=== PATIENT | male | born 1940 | race African-American/Black ===

== ENCOUNTER 2022-01-16 14:54 | Emergency (ER) | payer MEDICARE ==
[~2022-01-16] VITALS: Ht 180.3 cm; Wt 73.0 kg
[~2022-01-16 14:54] MED LIST: ASPI-1079 PO; METF100P3 MC
[2022-01-16] MEDS ORDERED: VANCOMYCIN 1G PREMIX 200 ML IV STA (15:53)
[2022-01-16] MEDS ORDERED: CEFEPIME 2,000 MG in DEXT 5% WATER 100 ML IV STA (15:54)
[2022-01-16 18:33] VITALS: BP 160/77
== END 2022-01-16 19:30 | disposition home or self-care (01) ==
LOC: ER 14:54
DX: T82.898A Other specified complication of vascular prosthetic devices, implants and grafts, initial encounter (principal); E11.9 Type 2 diabetes mellitus without complications; I10 Essential (primary) hypertension; I73.9 Peripheral vascular disease, unspecified; Z79.82 Long term (current) use of aspirin; Z79.84 Long term (current) use of oral hypoglycemic drugs; Z90.49 Acquired absence of other specified parts of digestive tract; Y83.8 Other surgical procedures as the cause of abnormal reaction of the patient, or of later complication, without mention of misadventure at the time of the procedure; Y92.018 Other place in single-family (private) house as the place of occurrence of the external cause
CPT/HCPCS: 82962; 96365; 96366; 96368; 99284; J0692; J3370; J7060

== ENCOUNTER 2022-01-17 08:55 | Emergency (ER) | payer MEDICARE ==
[~2022-01-17] VITALS: Ht 180.3 cm; Wt 72.0 kg
[2022-01-17 14:13] VITALS: BP 151/91
== END 2022-01-17 14:35 | disposition home or self-care (01) ==
LOC: ER 08:55
DX: Z95.828 Presence of other vascular implants and grafts (principal); I10 Essential (primary) hypertension; E11.9 Type 2 diabetes mellitus without complications; Z90.49 Acquired absence of other specified parts of digestive tract
CPT/HCPCS: 71045; 76937; 99284; C1725

== ENCOUNTER 2022-09-16 14:22 | Inpatient (IN) | payer MEDICARE, OTHER ==
[~2022-09-16] VITALS: Ht 180.3 cm; Wt 91.2 kg
[2022-09-16 15:54] LABS: BASOPHILS % 0.5 % (0.0-2.0); EOSINOPHILS % 0.2 % (0.0-5.0); HEMATOCRIT. 38.5 % (42.0-52.0); HEMOGLOBIN. 12.5 g/dL (14.0-18.0); LYMPHOCYTES % 11.4 % (20.0-50.0); MEAN CORPUSCULAR VOLUME 91.9 fL (80.0-94.0); MEAN PLATELET VOLUME 8.2 fl (7.4-10.4); MONOCYTES % 7.6 % (2.0-8.0); NEUTROPHILS % 80.3 % (40.0-76.0); PLATELET 297 x1000/uL (130-400); RED BLOOD CELL COUNT 4.19 mill/uL (4.7-6.1); RED CELL DISTRIBUTION WIDTH 15.3 % (11.6-14.6)
[2022-09-16 16:04] LABS: CHLORIDE 107 mEq/L (98-107)
[2022-09-16 16:25] LABS: ETHANOL BLOOD < 10 mg/dL
[2022-09-16] MEDS ORDERED: NITROGLYCERIN OINT 1GM/INCH UDPKT TD NR (18:00)
[2022-09-16] MEDS ORDERED: ASPIRIN 81MG TABLET PO NR (18:00)
[2022-09-16] MEDS ORDERED: FUROSEMIDE 40MG/4ML VIAL IV NR (18:00)
[2022-09-16] MEDS ORDERED: ONDANSETRON HCL 4MG/2ML INJ IV PRN (21:15)
[2022-09-16] MEDS ORDERED: IPRATROPIUM/ALBUTEROL 0.5-3(2.5)MG/3ML NEB HHN PRN (21:15)
[2022-09-16] MEDS ORDERED: DIPHENHYDRAMINE 50MG/ML VIAL IV PRN (21:15)
[2022-09-16] MEDS ORDERED: GUAIFENESIN 200MG/10ML SUGAR FREE UDC PO PRN (21:15)
[2022-09-16] MEDS ORDERED: ACETAMINOPHEN 650MG/20.3ML UDC GT PRN (21:15)
[2022-09-16] MEDS ORDERED: HYDROCODONE/ACETAMINOPHEN 5/325MG TABLET PO PRN (21:15)
[2022-09-16] MEDS ORDERED: ACETAMINOPHEN 325MG TABLET PO PRN (21:15)
[2022-09-16] MEDS ORDERED: NA PHOS,M-B/NA PHOS,DI-BA ENEMA 118ML PR PRN (21:15)
[2022-09-16] MEDS ORDERED: NALOXONE HCL 0.4MG/ML VIAL IV PRN (21:30)
[2022-09-16] MEDS ORDERED: DEXTROSE 50% WATER 50ML SYRINGE IV PRN (21:30)
[2022-09-16 22:05] LABS: CLARITY URINE CLEAR (CLEAR); COLOR URINE YELLOW (YELLOW); KETONES URINE NEGATIVE (NEGATIVE); LEUKOCYTE ESTERASE URINE NEGATIVE (NEGATIVE); NITRITE URINE NEGATIVE (NEGATIVE); OCCULT BLOOD URINE 1+ (NEGATIVE); PROTEIN URINE 3+ (NEGATIVE); SPECIFIC GRAVITY URINE 1.015 (1.005-1.030); UROBILINOGEN URINE 0.2 E.U./dL (0.2-1.0)
[2022-09-16 22:21] LABS: *AMPHETAMINES SCREEN URINE NEGATIVE (NEGATIVE); *BARBITURATES SCREEN URINE NEGATIVE (NEGATIVE); *BENZODIAZEPINES SCREEN URINE NEGATIVE (NEGATIVE); *COCAINE SCREEN URINE NEGATIVE (NEGATIVE); CANNABINOID URINE SCREEN NEGATIVE (NEGATIVE); METHADONE URINE SCREEN NEGATIVE (NEGATIVE); OPIATES URINE SCREEN NEGATIVE (NEGATIVE); PHENCYCLIDINE URINE SCREEN NEGATIVE (NEGATIVE)
[2022-09-16] MEDS: PANTOPRAZOLE 40MG DR TABLET PO SCH (22:32)
[2022-09-17] VITALS (7 sets, daily range): BP systolic 145–173; BP diastolic 89–105
[2022-09-17] MEDS: CLONIDINE 0.1MG TABLET PO PRN ×2 (00:24→21:44)
[2022-09-17 01:02] LABS: BASOPHILS % 0.2 % (0.0-2.0); EOSINOPHILS % 0.4 % (0.0-5.0); HEMATOCRIT. 35.6 % (42.0-52.0); HEMOGLOBIN. 11.6 g/dL (14.0-18.0); LYMPHOCYTES % 9.6 % (20.0-50.0); MEAN CORPUSCULAR VOLUME 91.6 fL (80.0-94.0); MEAN PLATELET VOLUME 7.8 fl (7.4-10.4); MONOCYTES % 8.5 % (2.0-8.0); NEUTROPHILS % 81.3 % (40.0-76.0); PLATELET 259 x1000/uL (130-400); RED BLOOD CELL COUNT 3.89 mill/uL (4.7-6.1); RED CELL DISTRIBUTION WIDTH 14.9 % (11.6-14.6)
[2022-09-17 01:48] LABS: CHLORIDE 107 mEq/L (98-107)
[2022-09-17 02:07] LABS: HDL CHOLESTEROL 69 mg/dL (40-59); LDL CHOLESTEROL 118 mg/dL (5-100); T4 FREE 1.16 ng/dL (0.76-1.46)
[2022-09-17 02:17] LABS: FOLIC ACID (FOLATE) SERUM 10.3 ng/mL (>5.38)
[2022-09-17 02:24] LABS: TOTAL IRON BINDING CAPACITY 153 ug/dL (250-450)
[2022-09-17] MEDS ORDERED: BLOOD SUGAR DIAGNOSTIC STRIP TEST SCH (07:40)
[2022-09-17] MEDS: PANTOPRAZOLE 40MG DR TABLET PO SCH (08:02)
[2022-09-17] MEDS: INSULIN LISPRO 100 UNITS/ML SUBCUT SCH ×4 (08:05→21:00)
[2022-09-17] MEDS: ENOXAPARIN 40MG/0.4ML SYR SUBCUT SCH (08:46)
[2022-09-17] MEDS ORDERED: DEXTROSE 50% WATER 50ML SYRINGE IV PRN (11:15)
[2022-09-17] MEDS: BLOOD SUGAR DIAGNOSTIC STRIP TEST SCH ×3 (13:09→21:45)
[2022-09-17] MEDS ORDERED: PIPERACILLIN/TAZOBACTAM 3.375 G in DEXT 5% WATER 100 ML IV SCH (14:00)
[2022-09-17] MEDS: PIPERACILLIN/TAZOBACTAM 3.375G in DEXT 5% WATER 50ML IV SCH ×2 (15:59→21:45)
[2022-09-17] MEDS ORDERED: SILVER SULFADIAZINE 1% CREAM 25GM TOP SCH (16:45)
[2022-09-17] MEDS: FUROSEMIDE 40MG/4ML VIAL IVP SCH (18:15)
[2022-09-17] MEDS: METFORMIN HCL 500MG TABLET PO SCH (18:15)
[2022-09-17] MEDS ORDERED: FUROSEMIDE 40MG TABLET PO SCH (21:00)
[2022-09-17] MEDS: CARVEDILOL 6.25 MG TABLET PO SCH (21:44)
[2022-09-18] VITALS: BP 155/102
[2022-09-18 04:00] VITALS: BP 141/90
[2022-09-18] MEDS: FUROSEMIDE 40MG/4ML VIAL IVP SCH ×3 (06:21→18:53)
[2022-09-18] MEDS: PIPERACILLIN/TAZOBACTAM 3.375G in DEXT 5% WATER 50ML IV SCH ×3 (06:21→21:57)
[2022-09-18] MEDS: BLOOD SUGAR DIAGNOSTIC STRIP TEST SCH ×4 (06:39→21:55)
[2022-09-18] MEDS: INSULIN LISPRO 100 UNITS/ML SUBCUT SCH ×4 (07:41→21:00)
[2022-09-18 08:00] VITALS: BP 144/82
[2022-09-18] MEDS ORDERED: INSULIN GLARGINE 100 UNITS/ML SUBCUT SCH (08:00)
[2022-09-18] MEDS: METFORMIN HCL 500MG TABLET PO SCH ×2 (09:42→18:53)
[2022-09-18] MEDS: ASPIRIN 81MG TABLET PO SCH (09:42)
[2022-09-18] MEDS: FAMOTIDINE 20MG TABLET PO SCH ×2 (09:43→21:56)
[2022-09-18] MEDS: LOSARTAN POTASSIUM 50 MG TABLET PO SCH (09:43)
[2022-09-18] MEDS: ENOXAPARIN 40MG/0.4ML SYR SUBCUT SCH (09:43)
[2022-09-18] MEDS: CARVEDILOL 6.25 MG TABLET PO SCH ×2 (09:46→21:56)
[2022-09-18 12:00] VITALS: BP 127/69
[2022-09-18 13:00] LABS: BASOPHILS % 0.5 % (0.0-2.0); HEMATOCRIT. 35.7 % (42.0-52.0); HEMOGLOBIN. 12.1 g/dL (14.0-18.0); LYMPHOCYTES % 15.7 % (20.0-50.0); MEAN CORPUSCULAR HEMOGLOBIN 30.5 pg (28.0-32.0); MEAN CORPUSCULAR VOLUME 89.8 fL (80.0-94.0); MEAN PLATELET VOLUME 8.1 fl (7.4-10.4); MONOCYTES % 9.2 % (2.0-8.0); NEUTROPHILS % 72.6 % (40.0-76.0); PLATELET 217 x1000/uL (130-400); RED BLOOD CELL COUNT 3.97 mill/uL (4.7-6.1); RED CELL DISTRIBUTION WIDTH 14.6 % (11.6-14.6)
[2022-09-18 13:17] LABS: CHLORIDE 105 mEq/L (98-107)
[2022-09-18 13:26] LABS: PHOSPHORUS 3.9 mg/dL (2.5-4.9)
[2022-09-18 16:00] VITALS: BP 141/82
[2022-09-18 20:00] VITALS: BP 141/88
[2022-09-19] VITALS: BP 150/95
[2022-09-19 04:00] VITALS: BP 136/83
[2022-09-19] MEDS: FUROSEMIDE 40MG/4ML VIAL IVP SCH ×2 (05:42→17:25)
[2022-09-19] MEDS: PIPERACILLIN/TAZOBACTAM 3.375G in DEXT 5% WATER 50ML IV SCH ×2 (05:42→13:11)
[2022-09-19] MEDS: BLOOD SUGAR DIAGNOSTIC STRIP TEST SCH ×4 (06:03→21:00)
[2022-09-19] MEDS: ASPIRIN 81MG TABLET PO SCH (09:13)
[2022-09-19] MEDS: LOSARTAN POTASSIUM 50 MG TABLET PO SCH (09:13)
[2022-09-19] MEDS: FAMOTIDINE 20MG TABLET PO SCH ×2 (09:13→22:04)
[2022-09-19] MEDS: CARVEDILOL 6.25 MG TABLET PO SCH ×2 (09:14→22:04)
[2022-09-19] MEDS: INSULIN LISPRO 100 UNITS/ML SUBCUT SCH ×4 (09:15→21:00)
[2022-09-19] MEDS: ENOXAPARIN 40MG/0.4ML SYR SUBCUT SCH (09:17)
[2022-09-19] MEDS: METFORMIN HCL 500MG TABLET PO SCH ×2 (09:20→17:25)
[2022-09-19 09:23] LABS: BASOPHILS % 0.7 % (0.0-2.0); EOSINOPHILS % 1.8 % (0.0-5.0); HEMATOCRIT. 38.9 % (42.0-52.0); HEMOGLOBIN. 12.3 g/dL (14.0-18.0); LYMPHOCYTES % 16.4 % (20.0-50.0); MEAN CORPUSCULAR HEMOGLOBIN 29.5 pg (28.0-32.0); MEAN PLATELET VOLUME 7.7 fl (7.4-10.4); MONOCYTES % 6.7 % (2.0-8.0); NEUTROPHILS % 74.4 % (40.0-76.0); PLATELET 263 x1000/uL (130-400); RED BLOOD CELL COUNT 4.19 mill/uL (4.7-6.1)
[2022-09-19 10:31] LABS: CHLORIDE 107 mEq/L (98-107); PHOSPHORUS 3.6 mg/dL (2.5-4.9)
[2022-09-19 12:00] VITALS: BP 119/74
[2022-09-19 16:00] VITALS: BP 127/73
[2022-09-19 20:00] VITALS: BP 132/85
[2022-09-19] MEDS ORDERED: CEFEPIME HCL 1000MG/VIAL INJ IM SCH (21:00)
[2022-09-19] MEDS: CEFEPIME 2,000 MG in DEXT 5% WATER 100 ML IV SCH (22:03)
[2022-09-20] VITALS: BP 151/83
[2022-09-20 04:00] VITALS: BP 153/92
[2022-09-20 06:19] LABS: BASOPHILS % 0.9 % (0.0-2.0); EOSINOPHILS % 1.8 % (0.0-5.0); HEMATOCRIT. 35.5 % (42.0-52.0); HEMOGLOBIN. 11.7 g/dL (14.0-18.0); LYMPHOCYTES % 15.3 % (20.0-50.0); MEAN CORPUSCULAR HEMOGLOBIN 29.9 pg (28.0-32.0); MEAN CORPUSCULAR VOLUME 90.6 fL (80.0-94.0); MEAN PLATELET VOLUME 7.9 fl (7.4-10.4); MONOCYTES % 10.1 % (2.0-8.0); NEUTROPHILS % 71.9 % (40.0-76.0); PLATELET 257 x1000/uL (130-400); RED BLOOD CELL COUNT 3.91 mill/uL (4.7-6.1); RED CELL DISTRIBUTION WIDTH 14.9 % (11.6-14.6)
[2022-09-20] MEDS: FUROSEMIDE 40MG/4ML VIAL IVP SCH ×2 (06:29→17:48)
[2022-09-20 06:57] LABS: CHLORIDE 104 mEq/L (98-107)
[2022-09-20 07:05] LABS: PHOSPHORUS 3.7 mg/dL (2.5-4.9)
[2022-09-20] MEDS: BLOOD SUGAR DIAGNOSTIC STRIP TEST SCH ×4 (07:40→21:00)
[2022-09-20 08:00] VITALS: BP 173/94
[2022-09-20] MEDS: INSULIN LISPRO 100 UNITS/ML SUBCUT SCH ×4 (08:10→21:00)
[2022-09-20] MEDS: ASPIRIN 81MG TABLET PO SCH (09:06)
[2022-09-20] MEDS: FAMOTIDINE 20MG TABLET PO SCH ×2 (09:06→21:00)
[2022-09-20] MEDS: METFORMIN HCL 500MG TABLET PO SCH ×2 (09:06→17:55)
[2022-09-20] MEDS: CARVEDILOL 6.25 MG TABLET PO SCH ×2 (09:07→22:20)
[2022-09-20] MEDS: LOSARTAN POTASSIUM 50 MG TABLET PO SCH (09:07)
[2022-09-20] MEDS: ENOXAPARIN 40MG/0.4ML SYR SUBCUT SCH (09:07)
[2022-09-20 12:00] VITALS: BP 136/77
[2022-09-20] MEDS ORDERED: MAGNESIUM OXIDE 400MG TABLET PO NR (14:00)
[2022-09-20 16:00] VITALS: BP 136/81
[2022-09-20 20:00] VITALS: BP 148/83
[2022-09-20] MEDS: CEFEPIME 2,000 MG in DEXT 5% WATER 100 ML IV SCH (20:59)
[2022-09-21 04:00] VITALS: BP 143/87
[2022-09-21] MEDS: BLOOD SUGAR DIAGNOSTIC STRIP TEST SCH ×4 (07:26→21:00)
[2022-09-21] MEDS: INSULIN LISPRO 100 UNITS/ML SUBCUT SCH ×4 (07:26→21:00)
[2022-09-21] MEDS: FUROSEMIDE 40MG/4ML VIAL IVP SCH (07:26)
[2022-09-21 08:00] VITALS: BP 141/85
[2022-09-21] MEDS: ASPIRIN 81MG TABLET PO SCH (08:21)
[2022-09-21] MEDS: LOSARTAN POTASSIUM 50 MG TABLET PO SCH (08:21)
[2022-09-21] MEDS: CARVEDILOL 6.25 MG TABLET PO SCH (08:21)
[2022-09-21] MEDS: METFORMIN HCL 500MG TABLET PO SCH ×2 (08:21→17:07)
[2022-09-21] MEDS: FAMOTIDINE 20MG TABLET PO SCH ×2 (08:21→21:12)
[2022-09-21] MEDS: ENOXAPARIN 40MG/0.4ML SYR SUBCUT SCH (08:22)
[2022-09-21 10:44] LABS: BASOPHILS % 0.5 % (0.0-2.0); EOSINOPHILS % 1.9 % (0.0-5.0); HEMATOCRIT. 35.7 % (42.0-52.0); HEMOGLOBIN. 11.7 g/dL (14.0-18.0); LYMPHOCYTES % 15.5 % (20.0-50.0); MEAN CORPUSCULAR HEMOGLOBIN 29.8 pg (28.0-32.0); MEAN PLATELET VOLUME 7.8 fl (7.4-10.4); MONOCYTES % 9.1 % (2.0-8.0); PLATELET 244 x1000/uL (130-400); RED BLOOD CELL COUNT 3.92 mill/uL (4.7-6.1); RED CELL DISTRIBUTION WIDTH 14.7 % (11.6-14.6)
[2022-09-21 11:28] LABS: CHLORIDE 105 mEq/L (98-107)
[2022-09-21 12:00] VITALS: BP 137/81
[2022-09-21 16:00] VITALS: BP 131/86
[2022-09-21 20:00] VITALS: BP 138/90
[2022-09-21] MEDS: CEFEPIME 2,000 MG in DEXT 5% WATER 100 ML IV SCH (21:11)
[2022-09-21] MEDS: CARVEDILOL 12.5MG TABLET PO SCH (21:12)
[2022-09-22] VITALS: BP 134/78
[2022-09-22 04:00] VITALS: BP 139/76
[2022-09-22] MEDS: BLOOD SUGAR DIAGNOSTIC STRIP TEST SCH ×4 (06:25→21:45)
[2022-09-22] MEDS: METFORMIN HCL 500MG TABLET PO SCH ×2 (06:26→17:51)
[2022-09-22] MEDS: INSULIN LISPRO 100 UNITS/ML SUBCUT SCH ×4 (06:26→22:01)
[2022-09-22 08:00] VITALS: BP 139/73
[2022-09-22 11:15] LABS: BASOPHILS % 0.3 % (0.0-2.0); EOSINOPHILS % 2.3 % (0.0-5.0); HEMATOCRIT. 35.1 % (42.0-52.0); HEMOGLOBIN. 11.4 g/dL (14.0-18.0); LYMPHOCYTES % 19.1 % (20.0-50.0); MEAN CORPUSCULAR HEMOGLOBIN 29.6 pg (28.0-32.0); MEAN CORPUSCULAR VOLUME 91.2 fL (80.0-94.0); MEAN PLATELET VOLUME 7.5 fl (7.4-10.4); MONOCYTES % 11.4 % (2.0-8.0); NEUTROPHILS % 66.9 % (40.0-76.0); PLATELET 238 x1000/uL (130-400); RED BLOOD CELL COUNT 3.84 mill/uL (4.7-6.1); RED CELL DISTRIBUTION WIDTH 14.9 % (11.6-14.6)
[2022-09-22 12:00] VITALS: BP 150/83
[2022-09-22 12:17] LABS: CHLORIDE 102 mEq/L (98-107)
[2022-09-22] MEDS: FAMOTIDINE 20MG TABLET PO SCH ×2 (13:27→21:59)
[2022-09-22] MEDS: LOSARTAN POTASSIUM 50 MG TABLET PO SCH (13:27)
[2022-09-22] MEDS: ASPIRIN 81MG TABLET PO SCH (13:27)
[2022-09-22] MEDS: ENOXAPARIN 40MG/0.4ML SYR SUBCUT SCH (13:28)
[2022-09-22] MEDS: CARVEDILOL 12.5MG TABLET PO SCH ×2 (13:28→22:00)
[2022-09-22 16:00] VITALS: BP 129/66
[2022-09-22 20:00] VITALS: BP 130/73
[2022-09-22] MEDS: CEFEPIME 2,000 MG in DEXT 5% WATER 100 ML IV SCH (22:20)
[2022-09-23] VITALS (9 sets, daily range): BP systolic 124–160; BP diastolic 61–90
[2022-09-23 06:34] LABS: BASOPHILS % 0.8 % (0.0-2.0); EOSINOPHILS % 2.4 % (0.0-5.0); HEMATOCRIT. 35.6 % (42.0-52.0); HEMOGLOBIN. 11.7 g/dL (14.0-18.0); LYMPHOCYTES % 19.2 % (20.0-50.0); MEAN CORPUSCULAR HEMOGLOBIN 29.8 pg (28.0-32.0); MEAN CORPUSCULAR VOLUME 90.9 fL (80.0-94.0); MEAN PLATELET VOLUME 7.8 fl (7.4-10.4); NEUTROPHILS % 66.6 % (40.0-76.0); PLATELET 268 x1000/uL (130-400); RED BLOOD CELL COUNT 3.91 mill/uL (4.7-6.1); RED CELL DISTRIBUTION WIDTH 14.8 % (11.6-14.6)
[2022-09-23] MEDS: BLOOD SUGAR DIAGNOSTIC STRIP TEST SCH ×3 (07:35→20:42)
[2022-09-23] MEDS: INSULIN LISPRO 100 UNITS/ML SUBCUT SCH ×3 (07:36→21:00)
[2022-09-23] MEDS: ENOXAPARIN 40MG/0.4ML SYR SUBCUT SCH (09:00)
[2022-09-23 09:29] LABS: CHLORIDE 107 mEq/L (98-107)
[2022-09-23] MEDS: FAMOTIDINE 20MG TABLET PO SCH ×2 (09:51→21:17)
[2022-09-23] MEDS: ASPIRIN 81MG TABLET PO SCH (09:51)
[2022-09-23] MEDS: METFORMIN HCL 500MG TABLET PO SCH (09:51)
[2022-09-23] MEDS: LOSARTAN POTASSIUM 50 MG TABLET PO SCH (09:52)
[2022-09-23] MEDS: CARVEDILOL 12.5MG TABLET PO SCH ×2 (09:52→21:16)
[2022-09-23] MEDS ORDERED: IODIXANOL 320MG/ML 100 ML BOTTLE IV ONE (14:10)
[2022-09-23] MEDS ORDERED: LIDOCAINE HCL 1% 50ML VIAL (10MG/ML) ONE (14:11)
[2022-09-23] MEDS ORDERED: FENTANYL CITRATE/PF 50MCG/ML 2ML VIAL ONE ×2 (14:21→16:14)
[2022-09-23] MEDS ORDERED: MIDAZOLAM HCL 2 MG/2 ML VIAL ONE ×2 (14:21→15:42)
[2022-09-23] MEDS ORDERED: HEPARIN 1000 UNITS/ML 10ML ONE (15:19)
[2022-09-23] MEDS ORDERED: CLOPIDOGREL 75MG TABLET ONE (15:56)
[2022-09-23] MEDS ORDERED: ATROPINE SULFATE 1MG/10ML SYR IV PRN (17:00)
[2022-09-23] MEDS ORDERED: ONDANSETRON HCL 4MG/2ML INJ ONE (17:04)
[2022-09-23] MEDS: CEFEPIME 2,000 MG in DEXT 5% WATER 100 ML IV SCH (21:15)
[2022-09-24] VITALS (9 sets, daily range): BP systolic 112–141; BP diastolic 58–82
[2022-09-24 06:30] LABS: BASOPHILS % 0.7 % (0.0-2.0); EOSINOPHILS % 1.8 % (0.0-5.0); HEMATOCRIT. 35.8 % (42.0-52.0); HEMOGLOBIN. 11.6 g/dL (14.0-18.0); MEAN CORPUSCULAR HEMOGLOBIN 30.3 pg (28.0-32.0); MEAN CORPUSCULAR VOLUME 93.5 fL (80.0-94.0); MEAN PLATELET VOLUME 7.7 fl (7.4-10.4); MONOCYTES % 11.4 % (2.0-8.0); NEUTROPHILS % 67.1 % (40.0-76.0); PLATELET 233 x1000/uL (130-400); RED BLOOD CELL COUNT 3.83 mill/uL (4.7-6.1); RED CELL DISTRIBUTION WIDTH 14.9 % (11.6-14.6)
[2022-09-24 06:39] LABS: CHLORIDE 106 mEq/L (98-107)
[2022-09-24] MEDS: BLOOD SUGAR DIAGNOSTIC STRIP TEST SCH ×4 (06:43→21:40)
[2022-09-24] MEDS: INSULIN LISPRO 100 UNITS/ML SUBCUT SCH ×4 (07:20→21:52)
[2022-09-24] MEDS: FAMOTIDINE 20MG TABLET PO SCH ×2 (07:58→21:49)
[2022-09-24] MEDS: LOSARTAN POTASSIUM 50 MG TABLET PO SCH (07:58)
[2022-09-24] MEDS: METFORMIN HCL 500MG TABLET PO SCH ×2 (07:58→17:32)
[2022-09-24] MEDS: CARVEDILOL 12.5MG TABLET PO SCH ×2 (07:58→21:50)
[2022-09-24] MEDS: ENOXAPARIN 40MG/0.4ML SYR SUBCUT SCH (07:58)
[2022-09-24] MEDS: ASPIRIN 325MG TABLET PO SCH (09:51)
[2022-09-24] MEDS: CLOPIDOGREL 75MG TABLET PO SCH (09:51)
[2022-09-24] MEDS ORDERED: METF-414 PO (11:32)
[2022-09-24] MEDS ORDERED: COR12 PO (11:32)
[2022-09-24] MEDS ORDERED: LOSA50TA3 PO (11:32)
[2022-09-24] MEDS ORDERED: FURO-151 MT (11:32)
[2022-09-24] MEDS ORDERED: ASPI-986 PO (11:32)
[2022-09-24] MEDS ORDERED: CLOP75TA15 PO (11:32)
[2022-09-24] MEDS ORDERED: ATOR40TA70 MT (11:32)
[2022-09-24] MEDS ORDERED: FAMO20TA8 PO (11:32)
[2022-09-24] MEDS: FUROSEMIDE 40MG/4ML VIAL IVP SCH (12:07)
[2022-09-24] MEDS: MEROPENEM 1,000 MG in SODIUM CHLORIDE 0.9% 100 ML IV SCH (17:32)
[2022-09-25] VITALS (7 sets, daily range): BP systolic 117–152; BP diastolic 63–81
[2022-09-25] MEDS: MEROPENEM 1,000 MG in SODIUM CHLORIDE 0.9% 100 ML IV SCH ×3 (02:09→16:44)
[2022-09-25 06:25] LABS: BASOPHILS % 0.7 % (0.0-2.0); EOSINOPHILS % 2.3 % (0.0-5.0); HEMATOCRIT. 32.8 % (42.0-52.0); HEMOGLOBIN. 11.1 g/dL (14.0-18.0); LYMPHOCYTES % 15.6 % (20.0-50.0); MEAN CORPUSCULAR HEMOGLOBIN 30.6 pg (28.0-32.0); MEAN CORPUSCULAR VOLUME 90.9 fL (80.0-94.0); MEAN PLATELET VOLUME 7.8 fl (7.4-10.4); NEUTROPHILS % 68.4 % (40.0-76.0); PLATELET 244 x1000/uL (130-400); RED BLOOD CELL COUNT 3.61 mill/uL (4.7-6.1); RED CELL DISTRIBUTION WIDTH 14.6 % (11.6-14.6)
[2022-09-25] MEDS: BLOOD SUGAR DIAGNOSTIC STRIP TEST SCH ×4 (06:42→21:22)
[2022-09-25] MEDS: INSULIN LISPRO 100 UNITS/ML SUBCUT SCH ×4 (07:20→21:00)
[2022-09-25] MEDS: FUROSEMIDE 40MG/4ML VIAL IVP SCH (08:40)
[2022-09-25] MEDS: LOSARTAN POTASSIUM 50 MG TABLET PO SCH (08:41)
[2022-09-25] MEDS: CLOPIDOGREL 75MG TABLET PO SCH (08:41)
[2022-09-25] MEDS: ENOXAPARIN 40MG/0.4ML SYR SUBCUT SCH (08:41)
[2022-09-25 08:42] LABS: CHLORIDE 106 mEq/L (98-107)
[2022-09-25] MEDS: FAMOTIDINE 20MG TABLET PO SCH ×2 (08:43→21:27)
[2022-09-25] MEDS: ASPIRIN 325MG TABLET PO SCH (08:43)
[2022-09-25] MEDS: METFORMIN HCL 500MG TABLET PO SCH ×2 (08:43→16:55)
[2022-09-25] MEDS: CARVEDILOL 12.5MG TABLET PO SCH ×2 (08:43→21:28)
[2022-09-26 00:49] VITALS: BP 111/64
[2022-09-26] MEDS: MEROPENEM 1,000 MG in SODIUM CHLORIDE 0.9% 100 ML IV SCH ×3 (01:34→18:11)
[2022-09-26 03:41] VITALS: BP 150/84
[2022-09-26 06:12] LABS: BASOPHILS % 0.6 % (0.0-2.0); EOSINOPHILS % 2.2 % (0.0-5.0); HEMATOCRIT. 33.1 % (42.0-52.0); HEMOGLOBIN. 10.9 g/dL (14.0-18.0); LYMPHOCYTES % 20.1 % (20.0-50.0); MEAN CORPUSCULAR HEMOGLOBIN 29.9 pg (28.0-32.0); MEAN CORPUSCULAR VOLUME 90.7 fL (80.0-94.0); MEAN PLATELET VOLUME 7.6 fl (7.4-10.4); MONOCYTES % 13.3 % (2.0-8.0); NEUTROPHILS % 63.8 % (40.0-76.0); PLATELET 283 x1000/uL (130-400); RED BLOOD CELL COUNT 3.65 mill/uL (4.7-6.1); RED CELL DISTRIBUTION WIDTH 14.8 % (11.6-14.6)
[2022-09-26] MEDS: BLOOD SUGAR DIAGNOSTIC STRIP TEST SCH ×4 (06:21→21:20)
[2022-09-26 06:50] LABS: CHLORIDE 102 mEq/L (98-107)
[2022-09-26] MEDS: INSULIN LISPRO 100 UNITS/ML SUBCUT SCH ×4 (07:20→21:00)
[2022-09-26 08:00] VITALS: BP 142/78
[2022-09-26] MEDS: METFORMIN HCL 500MG TABLET PO SCH ×2 (10:05→18:11)
[2022-09-26] MEDS: LOSARTAN POTASSIUM 50 MG TABLET PO SCH (10:05)
[2022-09-26] MEDS: ASPIRIN 325MG TABLET PO SCH (10:05)
[2022-09-26] MEDS: FAMOTIDINE 20MG TABLET PO SCH ×2 (10:05→21:29)
[2022-09-26] MEDS: CLOPIDOGREL 75MG TABLET PO SCH (10:05)
[2022-09-26] MEDS: CARVEDILOL 12.5MG TABLET PO SCH ×2 (10:08→21:29)
[2022-09-26] MEDS: FUROSEMIDE 40MG/4ML VIAL IVP SCH (10:09)
[2022-09-26] MEDS: ENOXAPARIN 40MG/0.4ML SYR SUBCUT SCH (10:09)
[2022-09-26 12:00] VITALS: BP 108/59
[2022-09-26 16:00] VITALS: BP 110/74
[2022-09-26 20:09] VITALS: BP 124/70
[2022-09-27 01:31] VITALS: BP 141/88
[2022-09-27] MEDS: MEROPENEM 1,000 MG in SODIUM CHLORIDE 0.9% 100 ML IV SCH ×3 (01:41→17:23)
[2022-09-27 03:31] VITALS: BP 155/89
[2022-09-27] MEDS: BLOOD SUGAR DIAGNOSTIC STRIP TEST SCH ×5 (06:09→21:40)
[2022-09-27] MEDS: INSULIN LISPRO 100 UNITS/ML SUBCUT SCH ×4 (07:20→21:40)
[2022-09-27 08:00] VITALS: BP 150/75
[2022-09-27] MEDS: ASPIRIN 325MG TABLET PO SCH (09:41)
[2022-09-27] MEDS: FUROSEMIDE 40MG/4ML VIAL IVP SCH (09:41)
[2022-09-27] MEDS: CLOPIDOGREL 75MG TABLET PO SCH (09:41)
[2022-09-27] MEDS: FAMOTIDINE 20MG TABLET PO SCH ×2 (09:41→21:29)
[2022-09-27] MEDS: CARVEDILOL 12.5MG TABLET PO SCH ×2 (09:42→21:30)
[2022-09-27] MEDS: ENOXAPARIN 40MG/0.4ML SYR SUBCUT SCH (09:45)
[2022-09-27] MEDS: LOSARTAN POTASSIUM 50 MG TABLET PO SCH (09:55)
[2022-09-27] MEDS: METFORMIN HCL 500MG TABLET PO SCH ×2 (09:56→17:24)
[2022-09-27 12:00] VITALS: BP 87/61
[2022-09-27 15:34] VITALS: BP 136/74
[2022-09-27 20:00] VITALS: BP 139/74
[2022-09-28] VITALS (8 sets, daily range): BP systolic 113–143; BP diastolic 63–86
[2022-09-28] MEDS: MEROPENEM 1,000 MG in SODIUM CHLORIDE 0.9% 100 ML IV SCH ×3 (05:26→17:32)
[2022-09-28] MEDS: BLOOD SUGAR DIAGNOSTIC STRIP TEST SCH ×4 (06:54→21:35)
[2022-09-28 07:00] LABS: BASOPHILS % 0.9 % (0.0-2.0); EOSINOPHILS % 2.4 % (0.0-5.0); HEMATOCRIT. 31.2 % (42.0-52.0); HEMOGLOBIN. 10.5 g/dL (14.0-18.0); LYMPHOCYTES % 22.1 % (20.0-50.0); MEAN CORPUSCULAR HEMOGLOBIN 30.6 pg (28.0-32.0); MEAN CORPUSCULAR VOLUME 90.9 fL (80.0-94.0); MEAN PLATELET VOLUME 7.6 fl (7.4-10.4); MONOCYTES % 12.2 % (2.0-8.0); NEUTROPHILS % 62.4 % (40.0-76.0); PLATELET 265 x1000/uL (130-400); RED BLOOD CELL COUNT 3.43 mill/uL (4.7-6.1); RED CELL DISTRIBUTION WIDTH 14.8 % (11.6-14.6)
[2022-09-28] MEDS: INSULIN LISPRO 100 UNITS/ML SUBCUT SCH ×4 (07:20→21:35)
[2022-09-28 07:32] LABS: CHLORIDE 103 mEq/L (98-107)
[2022-09-28] MEDS: LOSARTAN POTASSIUM 50 MG TABLET PO SCH (08:32)
[2022-09-28] MEDS: FAMOTIDINE 20MG TABLET PO SCH ×2 (08:33→21:36)
[2022-09-28] MEDS: CARVEDILOL 12.5MG TABLET PO SCH ×2 (08:33→21:36)
[2022-09-28] MEDS: CLOPIDOGREL 75MG TABLET PO SCH (08:33)
[2022-09-28] MEDS: METFORMIN HCL 500MG TABLET PO SCH ×2 (08:33→17:32)
[2022-09-28] MEDS: ASPIRIN 325MG TABLET PO SCH (08:33)
[2022-09-28] MEDS: ENOXAPARIN 40MG/0.4ML SYR SUBCUT SCH (09:16)
[2022-09-28] MEDS: FUROSEMIDE 40MG/4ML VIAL IVP SCH (09:16)
[2022-09-29] VITALS: BP 134/70
[2022-09-29] MEDS: MEROPENEM 1,000 MG in SODIUM CHLORIDE 0.9% 100 ML IV SCH ×3 (00:53→17:59)
[2022-09-29 04:00] VITALS: BP 134/65
[2022-09-29] MEDS: BLOOD SUGAR DIAGNOSTIC STRIP TEST SCH ×4 (06:22→21:23)
[2022-09-29] MEDS: INSULIN LISPRO 100 UNITS/ML SUBCUT SCH ×4 (07:20→21:23)
[2022-09-29 08:00] VITALS: BP 138/79
[2022-09-29] MEDS: LOSARTAN POTASSIUM 50 MG TABLET PO SCH (09:22)
[2022-09-29] MEDS: ASPIRIN 325MG TABLET PO SCH (09:22)
[2022-09-29] MEDS: CARVEDILOL 12.5MG TABLET PO SCH ×2 (09:22→21:08)
[2022-09-29] MEDS: CLOPIDOGREL 75MG TABLET PO SCH (09:22)
[2022-09-29] MEDS: METFORMIN HCL 500MG TABLET PO SCH ×2 (09:22→17:58)
[2022-09-29] MEDS: ENOXAPARIN 40MG/0.4ML SYR SUBCUT SCH (09:23)
[2022-09-29] MEDS: FAMOTIDINE 20MG TABLET PO SCH ×2 (09:23→21:08)
[2022-09-29] MEDS: FUROSEMIDE 40MG/4ML VIAL IVP SCH (09:23)
[2022-09-29 12:06] VITALS: BP 123/68
[2022-09-29 16:00] VITALS: BP 122/59
[2022-09-29 20:53] VITALS: BP 126/67
[2022-09-30] VITALS (7 sets, daily range): BP systolic 113–137; BP diastolic 63–81
[2022-09-30] MEDS: MEROPENEM 1,000 MG in SODIUM CHLORIDE 0.9% 100 ML IV SCH ×3 (01:25→17:58)
[2022-09-30] MEDS: INSULIN LISPRO 100 UNITS/ML SUBCUT SCH ×4 (07:20→20:36)
[2022-09-30] MEDS: BLOOD SUGAR DIAGNOSTIC STRIP TEST SCH ×4 (07:46→20:27)
[2022-09-30] MEDS: METFORMIN HCL 500MG TABLET PO SCH ×2 (07:46→17:58)
[2022-09-30] MEDS: LOSARTAN POTASSIUM 50 MG TABLET PO SCH (09:39)
[2022-09-30] MEDS: ENOXAPARIN 40MG/0.4ML SYR SUBCUT SCH (09:39)
[2022-09-30] MEDS: CARVEDILOL 12.5MG TABLET PO SCH ×2 (09:39→20:33)
[2022-09-30] MEDS: CLOPIDOGREL 75MG TABLET PO SCH (09:39)
[2022-09-30] MEDS: ASPIRIN 325MG TABLET PO SCH (09:39)
[2022-09-30] MEDS: FAMOTIDINE 20MG TABLET PO SCH ×2 (09:39→20:33)
[2022-10-01] VITALS (9 sets, daily range): BP systolic 108–166; BP diastolic 65–87
[2022-10-01] MEDS: MEROPENEM 1,000 MG in SODIUM CHLORIDE 0.9% 100 ML IV SCH ×3 (00:46→18:17)
[2022-10-01] MEDS: METFORMIN HCL 500MG TABLET PO SCH ×2 (06:21→18:16)
[2022-10-01] MEDS: BLOOD SUGAR DIAGNOSTIC STRIP TEST SCH ×4 (06:21→20:41)
[2022-10-01] MEDS: INSULIN LISPRO 100 UNITS/ML SUBCUT SCH ×4 (06:57→20:41)
[2022-10-01] MEDS: CLOPIDOGREL 75MG TABLET PO SCH (08:16)
[2022-10-01] MEDS: FAMOTIDINE 20MG TABLET PO SCH ×2 (08:16→20:39)
[2022-10-01] MEDS: CARVEDILOL 12.5MG TABLET PO SCH ×2 (08:16→20:39)
[2022-10-01] MEDS: LOSARTAN POTASSIUM 50 MG TABLET PO SCH (08:16)
[2022-10-01] MEDS: ASPIRIN 325MG TABLET PO SCH (08:16)
[2022-10-01] MEDS: ENOXAPARIN 40MG/0.4ML SYR SUBCUT SCH (08:17)
[2022-10-02] VITALS (7 sets, daily range): BP systolic 112–159; BP diastolic 56–85
[2022-10-02] MEDS: MEROPENEM 1,000 MG in SODIUM CHLORIDE 0.9% 100 ML IV SCH ×3 (01:24→17:13)
[2022-10-02] MEDS: BLOOD SUGAR DIAGNOSTIC STRIP TEST SCH ×4 (07:00→20:34)
[2022-10-02] MEDS: INSULIN LISPRO 100 UNITS/ML SUBCUT SCH ×4 (07:20→20:34)
[2022-10-02] MEDS: LOSARTAN POTASSIUM 50 MG TABLET PO SCH (08:46)
[2022-10-02] MEDS: CLOPIDOGREL 75MG TABLET PO SCH (08:46)
[2022-10-02] MEDS: ASPIRIN 325MG TABLET PO SCH (08:47)
[2022-10-02] MEDS: ENOXAPARIN 40MG/0.4ML SYR SUBCUT SCH (08:47)
[2022-10-02] MEDS: METFORMIN HCL 500MG TABLET PO SCH ×2 (08:47→17:13)
[2022-10-02] MEDS: FAMOTIDINE 20MG TABLET PO SCH ×2 (08:47→20:34)
[2022-10-02] MEDS: CARVEDILOL 12.5MG TABLET PO SCH ×2 (08:47→20:34)
[2022-10-03] VITALS: BP 138/73
[2022-10-03] MEDS: MEROPENEM 1,000 MG in SODIUM CHLORIDE 0.9% 100 ML IV SCH ×3 (00:52→18:10)
[2022-10-03] MEDS: BLOOD SUGAR DIAGNOSTIC STRIP TEST SCH ×4 (06:37→20:57)
[2022-10-03] MEDS: INSULIN LISPRO 100 UNITS/ML SUBCUT SCH ×4 (07:30→20:57)
[2022-10-03 08:00] VITALS: BP 141/75
[2022-10-03] MEDS: CLOPIDOGREL 75MG TABLET PO SCH (09:23)
[2022-10-03] MEDS: ASPIRIN 325MG TABLET PO SCH (09:23)
[2022-10-03] MEDS: METFORMIN HCL 500MG TABLET PO SCH ×2 (09:23→18:10)
[2022-10-03] MEDS: LOSARTAN POTASSIUM 50 MG TABLET PO SCH (09:23)
[2022-10-03] MEDS: FAMOTIDINE 20MG TABLET PO SCH ×2 (09:23→20:47)
[2022-10-03] MEDS: CARVEDILOL 12.5MG TABLET PO SCH ×2 (09:23→20:48)
[2022-10-03] MEDS: ENOXAPARIN 40MG/0.4ML SYR SUBCUT SCH (09:24)
[2022-10-03 12:00] VITALS: BP 128/63
[2022-10-03 16:00] VITALS: BP 127/72
[2022-10-03 20:00] VITALS: BP 130/78
[2022-10-04] VITALS (7 sets, daily range): BP systolic 127–162; BP diastolic 72–93
[2022-10-04] MEDS: MEROPENEM 1,000 MG in SODIUM CHLORIDE 0.9% 100 ML IV SCH ×3 (00:49→18:01)
[2022-10-04] MEDS: BLOOD SUGAR DIAGNOSTIC STRIP TEST SCH ×4 (06:50→21:18)
[2022-10-04] MEDS: INSULIN LISPRO 100 UNITS/ML SUBCUT SCH ×4 (07:50→21:00)
[2022-10-04] MEDS: CLOPIDOGREL 75MG TABLET PO SCH (09:15)
[2022-10-04] MEDS: METFORMIN HCL 500MG TABLET PO SCH ×2 (09:15→18:01)
[2022-10-04] MEDS: FAMOTIDINE 20MG TABLET PO SCH ×2 (09:15→21:18)
[2022-10-04] MEDS: CARVEDILOL 12.5MG TABLET PO SCH ×2 (09:18→21:18)
[2022-10-04] MEDS: ASPIRIN 325MG TABLET PO SCH (09:18)
[2022-10-04] MEDS: LOSARTAN POTASSIUM 50 MG TABLET PO SCH (09:19)
[2022-10-04] MEDS: ENOXAPARIN 40MG/0.4ML SYR SUBCUT SCH (09:24)
[2022-10-05] VITALS: BP 140/74
[2022-10-05] MEDS: MEROPENEM 1,000 MG in SODIUM CHLORIDE 0.9% 100 ML IV SCH ×3 (00:46→18:17)
[2022-10-05 04:00] VITALS: BP 124/74
[2022-10-05] MEDS: BLOOD SUGAR DIAGNOSTIC STRIP TEST SCH ×4 (06:26→21:00)
[2022-10-05] MEDS: INSULIN LISPRO 100 UNITS/ML SUBCUT SCH ×4 (07:50→21:00)
[2022-10-05 08:00] VITALS: BP 126/65
[2022-10-05] MEDS: ASPIRIN 325MG TABLET PO SCH (08:45)
[2022-10-05] MEDS: CLOPIDOGREL 75MG TABLET PO SCH (08:45)
[2022-10-05] MEDS: METFORMIN HCL 500MG TABLET PO SCH ×2 (08:45→18:17)
[2022-10-05] MEDS: FAMOTIDINE 20MG TABLET PO SCH ×2 (08:45→22:09)
[2022-10-05] MEDS: CARVEDILOL 12.5MG TABLET PO SCH ×2 (08:46→22:09)
[2022-10-05] MEDS: ENOXAPARIN 40MG/0.4ML SYR SUBCUT SCH (08:46)
[2022-10-05] MEDS: LOSARTAN POTASSIUM 50 MG TABLET PO SCH (08:48)
[2022-10-05 12:00] VITALS: BP 125/65
[2022-10-05 16:00] VITALS: BP 157/67
[2022-10-05 20:00] VITALS: BP 144/75
[2022-10-06] VITALS: BP 131/75
[2022-10-06] MEDS: MEROPENEM 1,000 MG in SODIUM CHLORIDE 0.9% 100 ML IV SCH ×3 (00:44→17:59)
[2022-10-06 04:00] VITALS: BP 130/73
[2022-10-06] MEDS: BLOOD SUGAR DIAGNOSTIC STRIP TEST SCH ×4 (06:37→21:22)
[2022-10-06] MEDS: INSULIN LISPRO 100 UNITS/ML SUBCUT SCH ×4 (07:50→21:00)
[2022-10-06 08:00] VITALS: BP 141/80
[2022-10-06] MEDS: METFORMIN HCL 500MG TABLET PO SCH ×2 (08:54→17:59)
[2022-10-06] MEDS: ASPIRIN 325MG TABLET PO SCH (08:54)
[2022-10-06] MEDS: LOSARTAN POTASSIUM 50 MG TABLET PO SCH (08:56)
[2022-10-06] MEDS: CLOPIDOGREL 75MG TABLET PO SCH (08:56)
[2022-10-06] MEDS: CARVEDILOL 12.5MG TABLET PO SCH ×2 (08:56→21:00)
[2022-10-06] MEDS: ENOXAPARIN 40MG/0.4ML SYR SUBCUT SCH (08:57)
[2022-10-06 12:00] VITALS: BP 142/73
[2022-10-06] MEDS: FAMOTIDINE 20MG TABLET PO SCH ×2 (13:12→21:00)
[2022-10-06 16:00] VITALS: BP 150/95
[2022-10-06] MEDS ORDERED: FUROSEMIDE 40MG/4ML VIAL IVP NR (18:30)
[2022-10-06 20:00] VITALS: BP 100/66
[2022-10-07] VITALS: BP 150/84
[2022-10-07] MEDS: MEROPENEM 1,000 MG in SODIUM CHLORIDE 0.9% 100 ML IV SCH ×3 (01:52→18:12)
[2022-10-07 04:00] VITALS: BP 154/72
[2022-10-07] MEDS: BLOOD SUGAR DIAGNOSTIC STRIP TEST SCH ×4 (06:50→21:38)
[2022-10-07] MEDS: INSULIN LISPRO 100 UNITS/ML SUBCUT SCH ×4 (07:45→21:00)
[2022-10-07 08:00] VITALS: BP 156/56
[2022-10-07 08:41] LABS: BASOPHILS % 0.6 % (0.0-2.0); HEMATOCRIT. 30.8 % (42.0-52.0); HEMOGLOBIN. 10.2 g/dL (14.0-18.0); LYMPHOCYTES % 27.7 % (20.0-50.0); MEAN CORPUSCULAR HEMOGLOBIN 30.8 pg (28.0-32.0); MEAN CORPUSCULAR VOLUME 93.2 fL (80.0-94.0); MEAN PLATELET VOLUME 7.9 fl (7.4-10.4); MONOCYTES % 9.2 % (2.0-8.0); NEUTROPHILS % 59.5 % (40.0-76.0); PLATELET 313 x1000/uL (130-400); RED CELL DISTRIBUTION WIDTH 14.6 % (11.6-14.6)
[2022-10-07] MEDS: FAMOTIDINE 20MG TABLET PO SCH ×2 (08:58→21:39)
[2022-10-07] MEDS: METFORMIN HCL 500MG TABLET PO SCH ×2 (08:58→18:13)
[2022-10-07] MEDS: LOSARTAN POTASSIUM 50 MG TABLET PO SCH (08:58)
[2022-10-07] MEDS: FUROSEMIDE 40MG TABLET PO SCH ×2 (08:59→18:13)
[2022-10-07] MEDS: ASPIRIN 325MG TABLET PO SCH (08:59)
[2022-10-07] MEDS: CLOPIDOGREL 75MG TABLET PO SCH (08:59)
[2022-10-07] MEDS: ENOXAPARIN 40MG/0.4ML SYR SUBCUT SCH (09:03)
[2022-10-07] MEDS: CARVEDILOL 12.5MG TABLET PO SCH ×2 (09:03→21:39)
[2022-10-07 09:26] LABS: CHLORIDE 108 mEq/L (98-107)
[2022-10-07 12:00] VITALS: BP 115/60
[2022-10-07 16:00] VITALS: BP 130/68
[2022-10-07] MEDS ORDERED: SODIUM POLYSTYRENE SULFONATE 15 G/60 ML BOT PO NR (16:45)
[2022-10-07 20:00] VITALS: BP 166/87
[2022-10-08] VITALS: BP 144/83
[2022-10-08] MEDS: MEROPENEM 1,000 MG in SODIUM CHLORIDE 0.9% 100 ML IV SCH ×3 (01:35→17:26)
[2022-10-08 04:00] VITALS: BP 145/88
[2022-10-08] MEDS: BLOOD SUGAR DIAGNOSTIC STRIP TEST SCH ×4 (06:05→20:41)
[2022-10-08] MEDS: INSULIN LISPRO 100 UNITS/ML SUBCUT SCH ×4 (07:50→20:41)
[2022-10-08 08:00] VITALS: BP 145/77
[2022-10-08] MEDS: METFORMIN HCL 500MG TABLET PO SCH ×2 (10:32→17:25)
[2022-10-08] MEDS: CLOPIDOGREL 75MG TABLET PO SCH (10:32)
[2022-10-08] MEDS: ENOXAPARIN 40MG/0.4ML SYR SUBCUT SCH (10:32)
[2022-10-08] MEDS: FUROSEMIDE 40MG TABLET PO SCH ×2 (10:33→17:25)
[2022-10-08] MEDS: ASPIRIN 325MG TABLET PO SCH (10:33)
[2022-10-08] MEDS: CARVEDILOL 12.5MG TABLET PO SCH ×2 (10:34→20:40)
[2022-10-08] MEDS: LOSARTAN POTASSIUM 50 MG TABLET PO SCH (10:34)
[2022-10-08] MEDS: FAMOTIDINE 20MG TABLET PO SCH ×2 (10:34→20:40)
[2022-10-08 12:00] VITALS: BP 150/87
[2022-10-08 12:38] LABS: BASOPHILS % 0.8 % (0.0-2.0); EOSINOPHILS % 3.6 % (0.0-5.0); HEMATOCRIT. 29.8 % (42.0-52.0); HEMOGLOBIN. 9.9 g/dL (14.0-18.0); LYMPHOCYTES % 21.4 % (20.0-50.0); MEAN CORPUSCULAR VOLUME 93.1 fL (80.0-94.0); MEAN PLATELET VOLUME 7.8 fl (7.4-10.4); MONOCYTES % 9.5 % (2.0-8.0); NEUTROPHILS % 64.7 % (40.0-76.0); PLATELET 289 x1000/uL (130-400); RED CELL DISTRIBUTION WIDTH 14.9 % (11.6-14.6)
[2022-10-08 14:41] LABS: CHLORIDE 107 mEq/L (98-107)
[2022-10-08 16:00] VITALS: BP 149/63
[2022-10-08 20:00] VITALS: BP 119/83
[2022-10-09] VITALS: BP 117/81
[2022-10-09] MEDS: MEROPENEM 1,000 MG in SODIUM CHLORIDE 0.9% 100 ML IV SCH ×3 (01:30→18:08)
[2022-10-09] MEDS: BLOOD SUGAR DIAGNOSTIC STRIP TEST SCH ×4 (06:00→21:17)
[2022-10-09] MEDS: INSULIN LISPRO 100 UNITS/ML SUBCUT SCH ×3 (06:00→21:33)
[2022-10-09] MEDS: METFORMIN HCL 500MG TABLET PO SCH ×2 (06:00→18:08)
[2022-10-09 08:00] VITALS: BP 151/71
[2022-10-09] MEDS: CLOPIDOGREL 75MG TABLET PO SCH (09:05)
[2022-10-09] MEDS: LOSARTAN POTASSIUM 50 MG TABLET PO SCH (09:05)
[2022-10-09] MEDS: ENOXAPARIN 40MG/0.4ML SYR SUBCUT SCH (09:05)
[2022-10-09] MEDS: FUROSEMIDE 40MG TABLET PO SCH ×2 (09:05→18:08)
[2022-10-09] MEDS: FAMOTIDINE 20MG TABLET PO SCH ×2 (09:05→21:22)
[2022-10-09] MEDS: ASPIRIN 325MG TABLET PO SCH (09:05)
[2022-10-09] MEDS: CARVEDILOL 12.5MG TABLET PO SCH ×2 (09:07→21:22)
[2022-10-09 12:00] VITALS: BP 160/73
[2022-10-09 16:00] VITALS: BP 140/79
[2022-10-09 20:00] VITALS: BP 152/66
[2022-10-10] VITALS: BP 155/86
[2022-10-10] MEDS: MEROPENEM 1,000 MG in SODIUM CHLORIDE 0.9% 100 ML IV SCH ×3 (00:38→18:50)
[2022-10-10 04:00] VITALS: BP 155/80
[2022-10-10] MEDS: BLOOD SUGAR DIAGNOSTIC STRIP TEST SCH ×4 (07:06→20:14)
[2022-10-10] MEDS: INSULIN LISPRO 100 UNITS/ML SUBCUT SCH ×4 (07:50→20:20)
[2022-10-10 08:00] VITALS: BP 143/84
[2022-10-10] MEDS: METFORMIN HCL 500MG TABLET PO SCH ×2 (08:51→18:49)
[2022-10-10] MEDS: ASPIRIN 325MG TABLET PO SCH (08:52)
[2022-10-10] MEDS: FAMOTIDINE 20MG TABLET PO SCH ×2 (08:53→20:14)
[2022-10-10] MEDS: CARVEDILOL 12.5MG TABLET PO SCH ×2 (08:53→20:14)
[2022-10-10] MEDS: LOSARTAN POTASSIUM 50 MG TABLET PO SCH (08:53)
[2022-10-10] MEDS: DOCUSATE SODIUM 100MG CAPSULE PO PRN (08:54)
[2022-10-10] MEDS: CLOPIDOGREL 75MG TABLET PO SCH (08:54)
[2022-10-10] MEDS: ENOXAPARIN 40MG/0.4ML SYR SUBCUT SCH (08:54)
[2022-10-10] MEDS: FUROSEMIDE 40MG TABLET PO SCH ×2 (08:55→18:49)
[2022-10-10] MEDS: MAGNESIUM/ALUMINUM HYDROXIDE/SIMETHICONE 30ML UDC PO PRN (08:55)
[2022-10-10 12:00] VITALS: BP 143/74
[2022-10-10 16:00] VITALS: BP 114/69
[2022-10-11] VITALS: BP 118/64
[2022-10-11] MEDS: MEROPENEM 1,000 MG in SODIUM CHLORIDE 0.9% 100 ML IV SCH ×3 (01:18→19:02)
[2022-10-11 04:00] VITALS: BP 121/80
[2022-10-11] MEDS: BLOOD SUGAR DIAGNOSTIC STRIP TEST SCH ×4 (06:40→21:43)
[2022-10-11] MEDS: INSULIN LISPRO 100 UNITS/ML SUBCUT SCH ×4 (07:50→22:36)
[2022-10-11 08:00] VITALS: BP 139/80
[2022-10-11] MEDS: METFORMIN HCL 500MG TABLET PO SCH ×2 (08:45→17:22)
[2022-10-11] MEDS: FAMOTIDINE 20MG TABLET PO SCH ×2 (08:46→21:43)
[2022-10-11] MEDS: FUROSEMIDE 40MG TABLET PO SCH ×2 (08:46→17:22)
[2022-10-11] MEDS: CARVEDILOL 12.5MG TABLET PO SCH ×2 (08:46→21:43)
[2022-10-11] MEDS: LOSARTAN POTASSIUM 50 MG TABLET PO SCH (08:46)
[2022-10-11] MEDS: CLOPIDOGREL 75MG TABLET PO SCH (08:47)
[2022-10-11] MEDS: ENOXAPARIN 40MG/0.4ML SYR SUBCUT SCH (08:48)
[2022-10-11] MEDS: MAGNESIUM/ALUMINUM HYDROXIDE/SIMETHICONE 30ML UDC PO PRN (08:49)
[2022-10-11] MEDS: DOCUSATE SODIUM 100MG CAPSULE PO PRN (08:49)
[2022-10-11] MEDS: ASPIRIN 325MG TABLET PO SCH (08:57)
[2022-10-11 12:00] VITALS: BP 99/63
[2022-10-11 16:00] VITALS: BP 133/77
[2022-10-11 20:00] VITALS: BP 136/83
[2022-10-12] VITALS: BP 107/66
[2022-10-12] MEDS: MEROPENEM 1,000 MG in SODIUM CHLORIDE 0.9% 100 ML IV SCH ×4 (01:36→23:45)
[2022-10-12 04:00] VITALS: BP 142/81
[2022-10-12] MEDS: BLOOD SUGAR DIAGNOSTIC STRIP TEST SCH ×4 (07:34→21:00)
[2022-10-12] MEDS: INSULIN LISPRO 100 UNITS/ML SUBCUT SCH ×4 (07:46→21:00)
[2022-10-12] MEDS: METFORMIN HCL 500MG TABLET PO SCH ×2 (07:47→17:05)
[2022-10-12 08:00] VITALS: BP 120/71
[2022-10-12] MEDS: ASPIRIN 325MG TABLET PO SCH (08:08)
[2022-10-12] MEDS: ENOXAPARIN 40MG/0.4ML SYR SUBCUT SCH (08:08)
[2022-10-12] MEDS: CLOPIDOGREL 75MG TABLET PO SCH (08:08)
[2022-10-12] MEDS: FAMOTIDINE 20MG TABLET PO SCH ×2 (08:08→21:00)
[2022-10-12] MEDS: LOSARTAN POTASSIUM 50 MG TABLET PO SCH (08:08)
[2022-10-12] MEDS: FUROSEMIDE 40MG TABLET PO SCH ×2 (08:15→17:05)
[2022-10-12] MEDS: CARVEDILOL 12.5MG TABLET PO SCH ×2 (08:16→23:36)
[2022-10-12 12:00] VITALS: BP 135/79
[2022-10-12 16:00] VITALS: BP 118/82
[2022-10-12 20:00] VITALS: BP 140/84
[2022-10-13] VITALS: BP 138/80
[2022-10-13 04:00] VITALS: BP 129/82
[2022-10-13] MEDS: BLOOD SUGAR DIAGNOSTIC STRIP TEST SCH ×4 (06:43→20:31)
[2022-10-13] MEDS: INSULIN LISPRO 100 UNITS/ML SUBCUT SCH ×4 (07:50→20:31)
[2022-10-13 08:00] VITALS: BP 130/73
[2022-10-13] MEDS: MEROPENEM 1,000 MG in SODIUM CHLORIDE 0.9% 100 ML IV SCH ×2 (09:29→17:23)
[2022-10-13] MEDS: ASPIRIN 325MG TABLET PO SCH (09:29)
[2022-10-13] MEDS: METFORMIN HCL 500MG TABLET PO SCH ×2 (09:30→17:23)
[2022-10-13] MEDS: FAMOTIDINE 20MG TABLET PO SCH ×2 (09:30→20:48)
[2022-10-13] MEDS: LOSARTAN POTASSIUM 50 MG TABLET PO SCH (09:30)
[2022-10-13] MEDS: FUROSEMIDE 40MG TABLET PO SCH ×2 (09:30→17:23)
[2022-10-13] MEDS: CLOPIDOGREL 75MG TABLET PO SCH (09:30)
[2022-10-13] MEDS: CARVEDILOL 12.5MG TABLET PO SCH ×2 (09:31→20:48)
[2022-10-13] MEDS: ENOXAPARIN 40MG/0.4ML SYR SUBCUT SCH (09:31)
[2022-10-13 12:00] VITALS: BP 124/71
[2022-10-13 20:00] VITALS: BP_SYST 115; BP_SYST 119; BP_DIAS 62
[2022-10-14] VITALS: BP 134/85
[2022-10-14] MEDS: MEROPENEM 1,000 MG in SODIUM CHLORIDE 0.9% 100 ML IV SCH ×3 (01:28→17:18)
[2022-10-14 04:00] VITALS: BP 147/92
[2022-10-14] MEDS: INSULIN LISPRO 100 UNITS/ML SUBCUT SCH ×4 (07:50→21:00)
[2022-10-14 08:00] VITALS: BP 138/86
[2022-10-14] MEDS: BLOOD SUGAR DIAGNOSTIC STRIP TEST SCH ×4 (08:11→21:00)
[2022-10-14] MEDS: CLOPIDOGREL 75MG TABLET PO SCH (09:38)
[2022-10-14] MEDS: CARVEDILOL 12.5MG TABLET PO SCH ×2 (09:38→21:38)
[2022-10-14] MEDS: ASPIRIN 325MG TABLET PO SCH (09:38)
[2022-10-14] MEDS: ENOXAPARIN 40MG/0.4ML SYR SUBCUT SCH (09:38)
[2022-10-14] MEDS: METFORMIN HCL 500MG TABLET PO SCH ×2 (09:39→17:18)
[2022-10-14] MEDS: LOSARTAN POTASSIUM 50 MG TABLET PO SCH (09:39)
[2022-10-14] MEDS: FAMOTIDINE 20MG TABLET PO SCH ×2 (09:39→21:38)
[2022-10-14] MEDS: FUROSEMIDE 40MG TABLET PO SCH ×2 (09:39→17:18)
[2022-10-14 10:56] LABS: BASOPHILS % 1.1 % (0.0-2.0); HEMATOCRIT. 30.4 % (42.0-52.0); HEMOGLOBIN. 9.9 g/dL (14.0-18.0); MEAN CORPUSCULAR HEMOGLOBIN 30.7 pg (28.0-32.0); MEAN CORPUSCULAR VOLUME 94.4 fL (80.0-94.0); MEAN PLATELET VOLUME 7.8 fl (7.4-10.4); MONOCYTES % 8.1 % (2.0-8.0); NEUTROPHILS % 65.8 % (40.0-76.0); PLATELET 255 x1000/uL (130-400); RED BLOOD CELL COUNT 3.22 mill/uL (4.7-6.1)
[2022-10-14 11:02] LABS: CHLORIDE 105 mEq/L (98-107)
[2022-10-14 12:00] VITALS: BP 128/82
[2022-10-14 16:00] VITALS: BP 117/72
[2022-10-14 20:00] VITALS: BP 126/74
[2022-10-15] VITALS (7 sets, daily range): BP systolic 118–143; BP diastolic 59–79
[2022-10-15] MEDS: MEROPENEM 1,000 MG in SODIUM CHLORIDE 0.9% 100 ML IV SCH ×3 (02:13→16:20)
[2022-10-15] MEDS: BLOOD SUGAR DIAGNOSTIC STRIP TEST SCH ×2 (06:31→12:20)
[2022-10-15] MEDS: INSULIN LISPRO 100 UNITS/ML SUBCUT SCH (06:54)
[2022-10-15] MEDS: ASPIRIN 325MG TABLET PO SCH (08:19)
[2022-10-15] MEDS: METFORMIN HCL 500MG TABLET PO SCH (08:19)
[2022-10-15] MEDS: FUROSEMIDE 40MG TABLET PO SCH ×2 (08:19→16:20)
[2022-10-15] MEDS: CARVEDILOL 12.5MG TABLET PO SCH ×2 (08:24→21:20)
[2022-10-15] MEDS: FAMOTIDINE 20MG TABLET PO SCH ×2 (08:25→21:20)
[2022-10-15] MEDS: CLOPIDOGREL 75MG TABLET PO SCH (08:25)
[2022-10-15] MEDS: LOSARTAN POTASSIUM 50 MG TABLET PO SCH (08:25)
[2022-10-15] MEDS: ENOXAPARIN 40MG/0.4ML SYR SUBCUT SCH (08:35)
[2022-10-16] VITALS: BP 138/82
[2022-10-16] MEDS: MEROPENEM 1,000 MG in SODIUM CHLORIDE 0.9% 100 ML IV SCH ×3 (02:07→16:29)
[2022-10-16 04:00] VITALS: BP 139/81
[2022-10-16 08:00] VITALS: BP 133/73
[2022-10-16] MEDS: FAMOTIDINE 20MG TABLET PO SCH (09:00)
[2022-10-16] MEDS: ENOXAPARIN 40MG/0.4ML SYR SUBCUT SCH (09:00)
[2022-10-16] MEDS: ASPIRIN 325MG TABLET PO SCH (09:55)
[2022-10-16] MEDS: CLOPIDOGREL 75MG TABLET PO SCH (09:56)
[2022-10-16] MEDS: FUROSEMIDE 40MG TABLET PO SCH (09:56)
[2022-10-16] MEDS: LOSARTAN POTASSIUM 50 MG TABLET PO SCH (09:56)
[2022-10-16 12:00] VITALS: BP 124/71
[2022-10-16 16:00] VITALS: BP 125/69
[2022-10-16 20:52] VITALS: BP 135/69
[2022-10-17] VITALS: BP 145/89
[2022-10-17] MEDS: MEROPENEM 1,000 MG in SODIUM CHLORIDE 0.9% 100 ML IV SCH ×3 (01:19→17:46)
[2022-10-17 04:00] VITALS: BP 141/90
[2022-10-17 08:22] VITALS: BP 130/69
[2022-10-17] MEDS: ASPIRIN 325MG TABLET PO SCH (08:24)
[2022-10-17] MEDS: CLOPIDOGREL 75MG TABLET PO SCH (08:24)
[2022-10-17] MEDS: ENOXAPARIN 40MG/0.4ML SYR SUBCUT SCH (08:25)
[2022-10-17 12:30] VITALS: BP 148/83
[2022-10-17 20:00] VITALS: BP 123/90
[2022-10-18] VITALS: BP 150/90
[2022-10-18] MEDS: MEROPENEM 1,000 MG in SODIUM CHLORIDE 0.9% 100 ML IV SCH ×3 (01:24→18:08)
[2022-10-18 04:00] VITALS: BP 135/76
[2022-10-18 08:00] VITALS: BP 154/94
[2022-10-18] MEDS: ASPIRIN 325MG TABLET PO SCH (09:39)
[2022-10-18] MEDS: ENOXAPARIN 40MG/0.4ML SYR SUBCUT SCH (09:39)
[2022-10-18] MEDS: CLOPIDOGREL 75MG TABLET PO SCH (09:39)
[2022-10-18 12:00] VITALS: BP 144/86
[2022-10-18 16:00] VITALS: BP 157/101
[2022-10-19] VITALS: BP 147/87
[2022-10-19] MEDS: MEROPENEM 1,000 MG in SODIUM CHLORIDE 0.9% 100 ML IV SCH ×3 (01:02→17:47)
[2022-10-19 04:00] VITALS: BP 151/98
[2022-10-19 07:52] VITALS: BP 145/89
[2022-10-19] MEDS: CLOPIDOGREL 75MG TABLET PO SCH (08:26)
[2022-10-19] MEDS: ENOXAPARIN 40MG/0.4ML SYR SUBCUT SCH (08:26)
[2022-10-19] MEDS: ASPIRIN 325MG TABLET PO SCH (08:26)
[2022-10-19 12:00] VITALS: BP 127/74
[2022-10-19 16:00] VITALS: BP 141/79
[2022-10-19 20:00] VITALS: BP 136/74
[2022-10-20] VITALS: BP 139/87
[2022-10-20] MEDS: MEROPENEM 1,000 MG in SODIUM CHLORIDE 0.9% 100 ML IV SCH ×3 (01:02→17:51)
[2022-10-20 04:00] VITALS: BP 142/83
[2022-10-20 08:00] VITALS: BP 150/93
[2022-10-20] MEDS: CLOPIDOGREL 75MG TABLET PO SCH (08:41)
[2022-10-20] MEDS: ASPIRIN 325MG TABLET PO SCH (08:41)
[2022-10-20] MEDS: AMLODIPINE 5MG TABLET PO SCH (08:42)
[2022-10-20] MEDS: ENOXAPARIN 40MG/0.4ML SYR SUBCUT SCH (08:43)
[2022-10-20] MEDS ORDERED: DEXTROSE 50% WATER 50ML SYRINGE IV PRN (08:45)
[2022-10-20] MEDS: FUROSEMIDE 40MG TABLET PO SCH ×2 (09:55→21:32)
[2022-10-20] MEDS: BLOOD SUGAR DIAGNOSTIC STRIP TEST SCH ×3 (11:45→21:32)
[2022-10-20 12:28] VITALS: BP 142/88
[2022-10-20] MEDS: INSULIN LISPRO 100 UNITS/ML SUBCUT SCH ×3 (13:45→21:44)
[2022-10-20 16:00] VITALS: BP 128/77
[2022-10-20 20:00] VITALS: BP 133/81
[2022-10-21] VITALS: BP 128/63
[2022-10-21] MEDS: MEROPENEM 1,000 MG in SODIUM CHLORIDE 0.9% 100 ML IV SCH ×3 (01:41→17:32)
[2022-10-21 04:00] VITALS: BP 130/81
[2022-10-21] MEDS: INSULIN LISPRO 100 UNITS/ML SUBCUT SCH ×4 (06:42→22:02)
[2022-10-21] MEDS: BLOOD SUGAR DIAGNOSTIC STRIP TEST SCH ×4 (06:42→21:47)
[2022-10-21 08:37] VITALS: BP 140/94
[2022-10-21] MEDS: ASPIRIN 325MG TABLET PO SCH (08:43)
[2022-10-21] MEDS: CLOPIDOGREL 75MG TABLET PO SCH (08:43)
[2022-10-21] MEDS: AMLODIPINE 5MG TABLET PO SCH (08:43)
[2022-10-21] MEDS: FUROSEMIDE 40MG TABLET PO SCH ×2 (08:43→21:47)
[2022-10-21] MEDS: ENOXAPARIN 40MG/0.4ML SYR SUBCUT SCH (08:44)
[2022-10-21 12:17] VITALS: BP 136/67
[2022-10-21 16:46] VITALS: BP 165/82
[2022-10-21 20:00] VITALS: BP 146/78
[2022-10-22] VITALS: BP 148/88
[2022-10-22] MEDS: MEROPENEM 1,000 MG in SODIUM CHLORIDE 0.9% 100 ML IV SCH ×3 (02:19→19:07)
[2022-10-22 04:00] VITALS: BP 140/82
[2022-10-22] MEDS: BLOOD SUGAR DIAGNOSTIC STRIP TEST SCH ×4 (06:30→21:03)
[2022-10-22] MEDS: INSULIN LISPRO 100 UNITS/ML SUBCUT SCH ×4 (06:37→21:02)
[2022-10-22 08:00] VITALS: BP 146/89
[2022-10-22] MEDS: ASPIRIN 325MG TABLET PO SCH (10:53)
[2022-10-22] MEDS: FUROSEMIDE 40MG TABLET PO SCH ×2 (10:53→20:55)
[2022-10-22] MEDS: AMLODIPINE 5MG TABLET PO SCH (10:54)
[2022-10-22] MEDS: CLOPIDOGREL 75MG TABLET PO SCH (10:54)
[2022-10-22] MEDS: ENOXAPARIN 40MG/0.4ML SYR SUBCUT SCH (10:55)
[2022-10-22 12:00] VITALS: BP 139/81
[2022-10-22 16:00] VITALS: BP 141/83
[2022-10-22 20:00] VITALS: BP 141/81
[2022-10-23] MEDS: MEROPENEM 1,000 MG in SODIUM CHLORIDE 0.9% 100 ML IV SCH ×3 (01:08→17:53)
[2022-10-23 04:00] VITALS: BP 137/88
[2022-10-23] MEDS: BLOOD SUGAR DIAGNOSTIC STRIP TEST SCH ×4 (05:51→21:52)
[2022-10-23] MEDS: INSULIN LISPRO 100 UNITS/ML SUBCUT SCH ×4 (06:29→21:00)
[2022-10-23 08:00] VITALS: BP 130/76
[2022-10-23] MEDS: AMLODIPINE 5MG TABLET PO SCH (08:58)
[2022-10-23] MEDS: FUROSEMIDE 40MG TABLET PO SCH ×2 (08:58→21:52)
[2022-10-23] MEDS: ENOXAPARIN 40MG/0.4ML SYR SUBCUT SCH (08:59)
[2022-10-23 12:00] VITALS: BP 147/95
[2022-10-23 16:00] VITALS: BP 141/80
[2022-10-23 20:00] VITALS: BP 136/82
[2022-10-24] VITALS: BP 132/79
[2022-10-24] MEDS: MEROPENEM 1,000 MG in SODIUM CHLORIDE 0.9% 100 ML IV SCH ×3 (00:44→17:20)
[2022-10-24 04:00] VITALS: BP 136/84
[2022-10-24] MEDS: BLOOD SUGAR DIAGNOSTIC STRIP TEST SCH ×4 (06:12→21:31)
[2022-10-24] MEDS: INSULIN LISPRO 100 UNITS/ML SUBCUT SCH ×4 (07:15→21:31)
[2022-10-24 08:00] VITALS: BP 122/80
[2022-10-24] MEDS: FUROSEMIDE 40MG TABLET PO SCH ×2 (09:30→21:25)
[2022-10-24] MEDS: ENOXAPARIN 40MG/0.4ML SYR SUBCUT SCH (09:30)
[2022-10-24] MEDS: AMLODIPINE 5MG TABLET PO SCH (09:30)
[2022-10-24 12:00] VITALS: BP 147/80
[2022-10-24 15:35] LABS: BASOPHILS % 0.7 % (0.0-2.0); EOSINOPHILS % 4.8 % (0.0-5.0); HEMATOCRIT. 33.6 % (42.0-52.0); HEMOGLOBIN. 11.2 g/dL (14.0-18.0); LYMPHOCYTES % 19.6 % (20.0-50.0); MEAN CORPUSCULAR HEMOGLOBIN 31.1 pg (28.0-32.0); MEAN CORPUSCULAR VOLUME 93.8 fL (80.0-94.0); MEAN PLATELET VOLUME 7.9 fl (7.4-10.4); MONOCYTES % 11.8 % (2.0-8.0); NEUTROPHILS % 63.1 % (40.0-76.0); PLATELET 267 x1000/uL (130-400); RED BLOOD CELL COUNT 3.59 mill/uL (4.7-6.1); RED CELL DISTRIBUTION WIDTH 14.6 % (11.6-14.6)
[2022-10-24 16:00] VITALS: BP 166/82
[2022-10-24 20:00] VITALS: BP 140/82
[2022-10-25] VITALS: BP 136/83
[2022-10-25] MEDS: MEROPENEM 1,000 MG in SODIUM CHLORIDE 0.9% 100 ML IV SCH ×3 (01:28→18:02)
[2022-10-25 04:00] VITALS: BP_SYST 140; BP_DIAS 79; BP_DIAS 82
[2022-10-25] MEDS: BLOOD SUGAR DIAGNOSTIC STRIP TEST SCH ×4 (06:51→20:23)
[2022-10-25] MEDS: INSULIN LISPRO 100 UNITS/ML SUBCUT SCH ×4 (06:52→20:23)
[2022-10-25 08:00] VITALS: BP 120/60
[2022-10-25] MEDS: AMLODIPINE 5MG TABLET PO SCH (10:21)
[2022-10-25] MEDS: ENOXAPARIN 40MG/0.4ML SYR SUBCUT SCH (10:21)
[2022-10-25] MEDS: FUROSEMIDE 40MG TABLET PO SCH ×2 (10:21→20:26)
[2022-10-25 12:00] VITALS: BP 134/74
[2022-10-25 16:00] VITALS: BP 146/80
[2022-10-25 20:00] VITALS: BP 133/66
[2022-10-26] VITALS: BP 144/92
[2022-10-26] MEDS: MEROPENEM 1,000 MG in SODIUM CHLORIDE 0.9% 100 ML IV SCH ×3 (00:50→17:21)
[2022-10-26 04:00] VITALS: BP 154/90
[2022-10-26] MEDS: BLOOD SUGAR DIAGNOSTIC STRIP TEST SCH ×4 (06:59→21:50)
[2022-10-26] MEDS: INSULIN LISPRO 100 UNITS/ML SUBCUT SCH ×4 (06:59→22:19)
[2022-10-26 08:00] VITALS: BP 177/102
[2022-10-26] MEDS: AMLODIPINE 5MG TABLET PO SCH (08:02)
[2022-10-26] MEDS: ENOXAPARIN 40MG/0.4ML SYR SUBCUT SCH (08:02)
[2022-10-26] MEDS: FUROSEMIDE 40MG TABLET PO SCH ×2 (08:02→22:18)
[2022-10-26 12:00] VITALS: BP 167/82
[2022-10-26 13:10] LABS: BASOPHILS % 1.1 % (0.0-2.0); EOSINOPHILS % 5.8 % (0.0-5.0); HEMATOCRIT. 33.6 % (42.0-52.0); HEMOGLOBIN. 10.9 g/dL (14.0-18.0); LYMPHOCYTES % 22.1 % (20.0-50.0); MEAN CORPUSCULAR HEMOGLOBIN 30.5 pg (28.0-32.0); MEAN CORPUSCULAR VOLUME 94.3 fL (80.0-94.0); MEAN PLATELET VOLUME 7.6 fl (7.4-10.4); MONOCYTES % 10.2 % (2.0-8.0); NEUTROPHILS % 60.8 % (40.0-76.0); PLATELET 248 x1000/uL (130-400); RED BLOOD CELL COUNT 3.56 mill/uL (4.7-6.1); RED CELL DISTRIBUTION WIDTH 14.9 % (11.6-14.6)
[2022-10-26 13:17] LABS: CHLORIDE 101 mEq/L (98-107)
[2022-10-26] MEDS ORDERED: METFORMIN HCL 500MG TABLET PO SCH (17:15)
[2022-10-26 20:00] VITALS: BP 104/73
[2022-10-26] MEDS: TAMSULOSIN HCL 0.4MG SR CAPSULE PO SCH (22:17)
[2022-10-27] VITALS: BP 136/73
[2022-10-27] MEDS: MEROPENEM 1,000 MG in SODIUM CHLORIDE 0.9% 100 ML IV SCH ×3 (00:50→17:25)
[2022-10-27 04:00] VITALS: BP 132/77
[2022-10-27] MEDS: BLOOD SUGAR DIAGNOSTIC STRIP TEST SCH ×4 (05:44→21:00)
[2022-10-27] MEDS: INSULIN LISPRO 100 UNITS/ML SUBCUT SCH ×4 (05:44→21:32)
[2022-10-27 08:00] VITALS: BP 129/77
[2022-10-27] MEDS: FUROSEMIDE 40MG TABLET PO SCH ×2 (08:59→20:59)
[2022-10-27] MEDS: ENOXAPARIN 40MG/0.4ML SYR SUBCUT SCH (08:59)
[2022-10-27] MEDS: AMLODIPINE 5MG TABLET PO SCH (08:59)
[2022-10-27 12:00] VITALS: BP 145/65
[2022-10-27 16:00] VITALS: BP 124/73
[2022-10-27 20:00] VITALS: BP 126/73
[2022-10-27] MEDS: TAMSULOSIN HCL 0.4MG SR CAPSULE PO SCH (20:59)
[2022-10-28] VITALS: BP 127/68
[2022-10-28] MEDS: MEROPENEM 1,000 MG in SODIUM CHLORIDE 0.9% 100 ML IV SCH ×3 (01:39→17:13)
[2022-10-28 04:00] VITALS: BP 134/77
[2022-10-28] MEDS: BLOOD SUGAR DIAGNOSTIC STRIP TEST SCH ×4 (05:56→21:25)
[2022-10-28] MEDS: INSULIN LISPRO 100 UNITS/ML SUBCUT SCH ×4 (05:56→21:00)
[2022-10-28 08:12] VITALS: BP 132/42
[2022-10-28] MEDS: AMLODIPINE 5MG TABLET PO SCH (09:57)
[2022-10-28] MEDS: ENOXAPARIN 40MG/0.4ML SYR SUBCUT SCH (09:57)
[2022-10-28] MEDS: FUROSEMIDE 40MG TABLET PO SCH ×2 (09:57→21:22)
[2022-10-28 12:20] VITALS: BP 131/73
[2022-10-28 16:10] VITALS: BP 128/80
[2022-10-28] MEDS: METFORMIN HCL 500MG TABLET PO SCH (17:41)
[2022-10-28] MEDS: AMMONIUM LACTATE 12% LOTION 240ML TOP SCH (18:27)
[2022-10-28 20:00] VITALS: BP 121/72
[2022-10-28] MEDS: TAMSULOSIN HCL 0.4MG SR CAPSULE PO SCH (21:22)
[2022-10-29] VITALS: BP 124/75
[2022-10-29] MEDS: MEROPENEM 1,000 MG in SODIUM CHLORIDE 0.9% 100 ML IV SCH ×3 (02:16→16:48)
[2022-10-29 04:00] VITALS: BP 127/74
[2022-10-29] MEDS: BLOOD SUGAR DIAGNOSTIC STRIP TEST SCH ×4 (06:06→21:00)
[2022-10-29] MEDS: METFORMIN HCL 500MG TABLET PO SCH ×2 (06:06→17:44)
[2022-10-29] MEDS: INSULIN LISPRO 100 UNITS/ML SUBCUT SCH ×4 (06:06→21:00)
[2022-10-29 08:00] VITALS: BP 129/79
[2022-10-29] MEDS: ENOXAPARIN 40MG/0.4ML SYR SUBCUT SCH (09:03)
[2022-10-29] MEDS: FUROSEMIDE 40MG TABLET PO SCH ×2 (09:03→21:00)
[2022-10-29] MEDS: AMLODIPINE 5MG TABLET PO SCH (09:03)
[2022-10-29] MEDS: AMMONIUM LACTATE 12% LOTION 240ML TOP SCH ×2 (09:05→17:46)
[2022-10-29 12:00] VITALS: BP 131/77
[2022-10-29 16:00] VITALS: BP 142/88
[2022-10-29 20:00] VITALS: BP 138/87
[2022-10-29] MEDS: TAMSULOSIN HCL 0.4MG SR CAPSULE PO SCH (21:00)
[2022-10-30] VITALS: BP 124/76
[2022-10-30] MEDS: MEROPENEM 1,000 MG in SODIUM CHLORIDE 0.9% 100 ML IV SCH ×3 (01:36→17:37)
[2022-10-30] MEDS: BLOOD SUGAR DIAGNOSTIC STRIP TEST SCH ×4 (05:47→21:00)
[2022-10-30] MEDS: INSULIN LISPRO 100 UNITS/ML SUBCUT SCH ×4 (05:47→21:51)
[2022-10-30] MEDS: METFORMIN HCL 500MG TABLET PO SCH ×2 (06:18→17:19)
[2022-10-30 08:16] VITALS: BP 118/74
[2022-10-30] MEDS: ENOXAPARIN 40MG/0.4ML SYR SUBCUT SCH (08:34)
[2022-10-30] MEDS: FUROSEMIDE 40MG TABLET PO SCH ×2 (08:34→21:45)
[2022-10-30] MEDS: AMLODIPINE 5MG TABLET PO SCH (08:34)
[2022-10-30] MEDS: AMMONIUM LACTATE 12% LOTION 240ML TOP SCH ×2 (08:36→17:19)
[2022-10-30 16:00] VITALS: BP 129/70
[2022-10-30] MEDS: TAMSULOSIN HCL 0.4MG SR CAPSULE PO SCH (21:45)
[2022-10-30 23:31] VITALS: BP 133/111
[2022-10-31] MEDS: MEROPENEM 1,000 MG in SODIUM CHLORIDE 0.9% 100 ML IV SCH ×4 (00:30→18:04)
[2022-10-31 04:00] VITALS: BP 123/76
[2022-10-31] MEDS: BLOOD SUGAR DIAGNOSTIC STRIP TEST SCH ×4 (06:38→21:00)
[2022-10-31] MEDS: INSULIN LISPRO 100 UNITS/ML SUBCUT SCH ×4 (06:38→20:47)
[2022-10-31] MEDS: METFORMIN HCL 500MG TABLET PO SCH ×2 (06:57→17:15)
[2022-10-31 07:45] VITALS: BP 117/73
[2022-10-31] MEDS: ENOXAPARIN 40MG/0.4ML SYR SUBCUT SCH (08:20)
[2022-10-31] MEDS: AMMONIUM LACTATE 12% LOTION 240ML TOP SCH ×2 (08:22→17:00)
[2022-10-31] MEDS: AMLODIPINE 5MG TABLET PO SCH (08:22)
[2022-10-31] MEDS: FUROSEMIDE 40MG TABLET PO SCH ×2 (08:22→20:46)
[2022-10-31] MEDS: TAMSULOSIN HCL 0.4MG SR CAPSULE PO SCH (20:46)
[2022-11-01] MEDS: BLOOD SUGAR DIAGNOSTIC STRIP TEST SCH ×4 (06:46→21:36)
[2022-11-01] MEDS: INSULIN LISPRO 100 UNITS/ML SUBCUT SCH ×4 (06:46→21:38)
[2022-11-01] MEDS: METFORMIN HCL 500MG TABLET PO SCH ×2 (06:46→17:49)
[2022-11-01 08:00] VITALS: BP 126/77
[2022-11-01] MEDS: AMLODIPINE 5MG TABLET PO SCH (08:33)
[2022-11-01] MEDS: ENOXAPARIN 40MG/0.4ML SYR SUBCUT SCH (08:34)
[2022-11-01] MEDS: FUROSEMIDE 40MG TABLET PO SCH ×2 (08:34→21:24)
[2022-11-01] MEDS: AMMONIUM LACTATE 12% LOTION 240ML TOP SCH ×2 (08:37→17:49)
[2022-11-01] MEDS: MEROPENEM 1,000 MG in SODIUM CHLORIDE 0.9% 100 ML IV SCH ×2 (08:54→17:29)
[2022-11-01 12:00] VITALS: BP 129/75
[2022-11-01 16:00] VITALS: BP 133/77
[2022-11-01 20:00] VITALS: BP 142/82
[2022-11-01] MEDS: TAMSULOSIN HCL 0.4MG SR CAPSULE PO SCH (21:18)
[2022-11-02] VITALS: BP 110/71
[2022-11-02 04:00] VITALS: BP 123/64
[2022-11-02] MEDS: METFORMIN HCL 500MG TABLET PO SCH ×2 (06:37→17:36)
[2022-11-02] MEDS: BLOOD SUGAR DIAGNOSTIC STRIP TEST SCH ×4 (06:38→21:10)
[2022-11-02] MEDS: INSULIN LISPRO 100 UNITS/ML SUBCUT SCH ×4 (06:38→21:30)
[2022-11-02 08:00] VITALS: BP 135/75
[2022-11-02] MEDS: FUROSEMIDE 40MG TABLET PO SCH ×2 (09:08→21:25)
[2022-11-02] MEDS: ENOXAPARIN 40MG/0.4ML SYR SUBCUT SCH (09:08)
[2022-11-02] MEDS: AMLODIPINE 5MG TABLET PO SCH (09:08)
[2022-11-02] MEDS: AMMONIUM LACTATE 12% LOTION 240ML TOP SCH ×2 (09:43→17:36)
[2022-11-02] MEDS: MEROPENEM 1,000 MG in SODIUM CHLORIDE 0.9% 100 ML IV SCH ×2 (09:54→16:31)
[2022-11-02 12:00] VITALS: BP 121/72
[2022-11-02 16:00] VITALS: BP 133/77
[2022-11-02 20:00] VITALS: BP 132/85
[2022-11-02] MEDS: TAMSULOSIN HCL 0.4MG SR CAPSULE PO SCH (21:25)
[2022-11-03] VITALS: BP 124/73
[2022-11-03] MEDS: MEROPENEM 1,000 MG in SODIUM CHLORIDE 0.9% 100 ML IV SCH ×3 (01:13→17:02)
[2022-11-03 04:00] VITALS: BP 130/87
[2022-11-03] MEDS: BLOOD SUGAR DIAGNOSTIC STRIP TEST SCH ×4 (05:34→20:08)
[2022-11-03] MEDS: INSULIN LISPRO 100 UNITS/ML SUBCUT SCH ×4 (05:34→20:08)
[2022-11-03 06:30] LABS: BASOPHILS % 0.9 % (0.0-2.0); EOSINOPHILS % 4.7 % (0.0-5.0); HEMOGLOBIN. 9.6 g/dL (14.0-18.0); LYMPHOCYTES % 18.1 % (20.0-50.0); MEAN CORPUSCULAR HEMOGLOBIN 31.6 pg (28.0-32.0); MEAN CORPUSCULAR VOLUME 91.8 fL (80.0-94.0); MEAN PLATELET VOLUME 8.1 fl (7.4-10.4); MONOCYTES % 13.4 % (2.0-8.0); NEUTROPHILS % 62.9 % (40.0-76.0); PLATELET 208 x1000/uL (130-400); RED BLOOD CELL COUNT 3.05 mill/uL (4.7-6.1); RED CELL DISTRIBUTION WIDTH 14.3 % (11.6-14.6)
[2022-11-03 08:00] VITALS: BP 119/77
[2022-11-03] MEDS: FUROSEMIDE 40MG TABLET PO SCH ×2 (08:39→21:31)
[2022-11-03] MEDS: METFORMIN HCL 500MG TABLET PO SCH ×2 (08:39→17:12)
[2022-11-03] MEDS: AMLODIPINE 5MG TABLET PO SCH (08:39)
[2022-11-03] MEDS: ENOXAPARIN 40MG/0.4ML SYR SUBCUT SCH (08:40)
[2022-11-03] MEDS: AMMONIUM LACTATE 12% LOTION 240ML TOP SCH ×2 (08:46→17:11)
[2022-11-03 12:00] VITALS: BP 114/66
[2022-11-03 16:00] VITALS: BP 136/80
[2022-11-03 20:00] VITALS: BP 135/79
[2022-11-03] MEDS: TAMSULOSIN HCL 0.4MG SR CAPSULE PO SCH (21:31)
[2022-11-04] VITALS: BP 126/80
[2022-11-04] MEDS: MEROPENEM 1,000 MG in SODIUM CHLORIDE 0.9% 100 ML IV SCH ×2 (01:03→09:54)
[2022-11-04 04:00] VITALS: BP 135/85
[2022-11-04] MEDS: BLOOD SUGAR DIAGNOSTIC STRIP TEST SCH (06:07)
[2022-11-04] MEDS: METFORMIN HCL 500MG TABLET PO SCH (06:27)
[2022-11-04] MEDS: INSULIN LISPRO 100 UNITS/ML SUBCUT SCH (06:30)
[2022-11-04 07:52] VITALS: BP 137/78
[2022-11-04] MEDS: AMMONIUM LACTATE 12% LOTION 240ML TOP SCH (09:00)
[2022-11-04] MEDS: ENOXAPARIN 40MG/0.4ML SYR SUBCUT SCH (09:01)
[2022-11-04] MEDS: AMLODIPINE 5MG TABLET PO SCH (09:01)
[2022-11-04] MEDS: FUROSEMIDE 40MG TABLET PO SCH (09:01)
[2022-11-04 12:15] VITALS: BP 137/78
== END 2022-11-04 13:21 | disposition home health service (06) | DRG 252 ==
LOC: ER 14:22 → 7WST 19:20 → 3WST 09-23 17:31 → 6EST 10-02 23:45 → 5WST 10-17 02:10
PROVIDERS: ADMIT Internal Medicine; ATTEND Internal Medicine
PROC: 047M3ZZ Dilation of Right Popliteal Artery, Percutaneous Approach (ICD-10-PCS; principal; 2022-09-23)
PROC: 047L3ZZ Dilation of Left Femoral Artery, Percutaneous Approach (ICD-10-PCS; 2022-09-23)
PROC: 047K3DZ Dilation of Right Femoral Artery with Intraluminal Device, Percutaneous Approach (ICD-10-PCS; 2022-09-23)
PROC: 0QBM0ZZ Excision of Left Tarsal, Open Approach (ICD-10-PCS; 2022-10-23)
PROC: 02HV33Z Insertion of Infusion Device into Superior Vena Cava, Percutaneous Approach (ICD-10-PCS; 2022-10-24)
PROC: B548ZZA Ultrasonography of Superior Vena Cava, Guidance (ICD-10-PCS; 2022-10-24)
DX: E11.52 Type 2 diabetes mellitus with diabetic peripheral angiopathy with gangrene (principal); E43 Unspecified severe protein-calorie malnutrition; I50.33 Acute on chronic diastolic (congestive) heart failure; L97.429 Non-pressure chronic ulcer of left heel and midfoot with unspecified severity; N17.9 Acute kidney failure, unspecified; M86.8X7 Other osteomyelitis, ankle and foot; I70.262 Atherosclerosis of native arteries of extremities with gangrene, left leg; I42.9 Cardiomyopathy, unspecified; I13.0 Hypertensive heart and chronic kidney disease with heart failure and stage 1 through stage 4 chronic kidney disease, or unspecified chronic kidney disease; K80.20 Calculus of gallbladder without cholecystitis without obstruction; L97.519 Non-pressure chronic ulcer of other part of right foot with unspecified severity; D63.8 Anemia in other chronic diseases classified elsewhere; E11.69 Type 2 diabetes mellitus with other specified complication; E78.5 Hyperlipidemia, unspecified; E11.621 Type 2 diabetes mellitus with foot ulcer; I16.0 Hypertensive urgency; E83.42 Hypomagnesemia; E11.40 Type 2 diabetes mellitus with diabetic neuropathy, unspecified; I27.20 Pulmonary hypertension, unspecified; N18.9 Chronic kidney disease, unspecified; N40.0 Benign prostatic hyperplasia without lower urinary tract symptoms; E11.22 Type 2 diabetes mellitus with diabetic chronic kidney disease; D64.89 Other specified anemias; K59.00 Constipation, unspecified; I08.1 Rheumatic disorders of both mitral and tricuspid valves; D63.1 Anemia in chronic kidney disease; Z68.28 Body mass index [BMI] 28.0-28.9, adult; Z90.49 Acquired absence of other specified parts of digestive tract; Z79.4 Long term (current) use of insulin; Z79.899 Other long term (current) drug therapy; Z91.199 Patient's noncompliance with other medical treatment and regimen due to unspecified reason; Z79.84 Long term (current) use of oral hypoglycemic drugs; Z79.82 Long term (current) use of aspirin; Z79.02 Long term (current) use of antithrombotics/antiplatelets; Z20.822 Contact with and (suspected) exposure to COVID-19
CPT/HCPCS: 36415; 36573; 37226; 37228; 71045; 73650; 73721; 75710; 76700; 76770; 80048; 80053; 80061; 80305; 80320; 81003; 82607; 82746; 82962; 83036; 83540; 83550; 83735; 83880; 84100; 84153; 84439; 84443; 84484; 85025; 85347; 85651; 87070; 87077; 87186; 87426; 93005; 93306; 93923; 93970; 97110; 97162; 97164; 97166; 97535; 99291; A6261; C1725; C1760; C1769; C1876; C1887; C1893; C1894; J0692; J1200; J1644; J1650; J1815; J1940; J2185; J2250; J2405; J2543; J3010; J3490; J7050; J7060; Q9967; G0103; G0480

== ENCOUNTER 2022-12-29 15:21 | Inpatient (IN) | payer MEDICARE, OTHER ==
[~2022-12-29] VITALS: Ht 181.6 cm; Wt 80.9 kg
[~2022-12-29 15:21] MED LIST changes: +ASPI-986 PO; +ATOR40TA70 MT; +CLOP75TA15 PO; +COR12 PO; +FAMO20TA8 PO; +FURO-151 MT; +LOSA50TA3 PO; +METF-414 PO
[2022-12-29 17:10] LABS: BASOPHILS % 0.7 % (0.0-2.0); EOSINOPHILS % 5.1 % (0.0-5.0); HEMATOCRIT. 35.9 % (42.0-52.0); HEMOGLOBIN. 11.7 g/dL (14.0-18.0); LYMPHOCYTES % 17.2 % (20.0-50.0); MEAN CORPUSCULAR HEMOGLOBIN 29.5 pg (28.0-32.0); MEAN PLATELET VOLUME 7.9 fl (7.4-10.4); MONOCYTES % 7.8 % (2.0-8.0); NEUTROPHILS % 69.2 % (40.0-76.0); PLATELET 258 x1000/uL (130-400); RED BLOOD CELL COUNT 3.98 mill/uL (4.7-6.1); RED CELL DISTRIBUTION WIDTH 14.1 % (11.6-14.6)
[2022-12-29 17:11] LABS: CHLORIDE 102 mEq/L (98-107); INR 1.1; PROTHROMBIN TIME 11.3 sec (9.6-11.0)
[2022-12-29] MEDS ORDERED: FUROSEMIDE 40MG/4ML VIAL IVP SCH (17:16)
[2022-12-29] MEDS ORDERED: DOCUSATE SODIUM 100MG CAPSULE PO PRN (20:30)
[2022-12-29] MEDS ORDERED: ONDANSETRON HCL 4MG/2ML INJ IV PRN (20:30)
[2022-12-29] MEDS ORDERED: ZOLPIDEM TARTRATE 5MG TABLET PO PRN (20:30)
[2022-12-29] MEDS ORDERED: TRAMADOL 50MG TABLET PO PRN (20:30)
[2022-12-29] MEDS ORDERED: MAGNESIUM/ALUMINUM HYDROXIDE/SIMETHICONE 30ML UDC PO PRN (20:30)
[2022-12-29] MEDS ORDERED: CLONIDINE 0.1MG TABLET PO PRN (20:30)
[2022-12-29] MEDS ORDERED: ACETAMINOPHEN 325MG TABLET PO PRN ×2 (20:30)
[2022-12-29] MEDS: SPIRONOLACTONE 25MG TABLET PO SCH (20:30)
[2022-12-29] MEDS ORDERED: NITROGLYCERIN 0.4MG TABLET SL SL PRN (20:30)
[2022-12-29] MEDS ORDERED: IPRATROPIUM/ALBUTEROL 0.5-3(2.5)MG/3ML NEB NEB PRN (20:30)
[2022-12-29] MEDS ORDERED: GUAIFENESIN 200MG/10ML SUGAR FREE UDC PO PRN (20:30)
[2022-12-29 20:35] LABS: CLARITY URINE CLEAR (CLEAR); COLOR URINE YELLOW (YELLOW); KETONES URINE NEGATIVE (NEGATIVE); LEUKOCYTE ESTERASE URINE NEGATIVE (NEGATIVE); NITRITE URINE NEGATIVE (NEGATIVE); OCCULT BLOOD URINE NEGATIVE (NEGATIVE); PH URINE 5.5 (4.5-8.0); PROTEIN URINE 2+ (NEGATIVE); SPECIFIC GRAVITY URINE 1.014 (1.005-1.030); UROBILINOGEN URINE 0.2 E.U./dL (0.2-1.0)
[2022-12-29] MEDS: FAMOTIDINE 20MG TABLET PO SCH (21:00)
[2022-12-29] MEDS: INSULIN LISPRO 100 UNITS/ML SUBCUT SCH (21:00)
[2022-12-29] MEDS: FUROSEMIDE 40MG/4ML VIAL IVP SCH (21:00)
[2022-12-29] MEDS: ATORVASTATIN CALCIUM 40MG TABLET PO SCH (21:00)
[2022-12-29] MEDS: INSULIN GLARGINE 100 UNITS/ML SUBCUT SCH (22:00)
[2022-12-29 22:06] LABS: T4 FREE 1.2 ng/dL (0.76-1.46)
[2022-12-29] MEDS: BLOOD SUGAR DIAGNOSTIC STRIP TEST SCH (22:44)
[2022-12-30 06:25] LABS: BASOPHILS % 1.1 % (0.0-2.0); EOSINOPHILS % 6.3 % (0.0-5.0); HEMATOCRIT. 29.8 % (42.0-52.0); HEMOGLOBIN. 10.1 g/dL (14.0-18.0); LYMPHOCYTES % 28.7 % (20.0-50.0); MEAN CORPUSCULAR HEMOGLOBIN 30.2 pg (28.0-32.0); MEAN CORPUSCULAR VOLUME 88.9 fL (80.0-94.0); MEAN PLATELET VOLUME 7.5 fl (7.4-10.4); MONOCYTES % 11.6 % (2.0-8.0); NEUTROPHILS % 52.3 % (40.0-76.0); PLATELET 251 x1000/uL (130-400); RED BLOOD CELL COUNT 3.35 mill/uL (4.7-6.1); RED CELL DISTRIBUTION WIDTH 13.8 % (11.6-14.6)
[2022-12-30] MEDS: BLOOD SUGAR DIAGNOSTIC STRIP TEST SCH ×4 (06:30→21:00)
[2022-12-30 06:38] LABS: CHLORIDE 105 mEq/L (98-107)
[2022-12-30 06:51] LABS: PHOSPHORUS 2.8 mg/dL (2.5-4.9)
[2022-12-30] MEDS: INSULIN LISPRO 100 UNITS/ML SUBCUT SCH ×4 (07:00→23:10)
[2022-12-30 08:21] LABS: CREATINE KINASE MB FRACTION 2.8 ng/mL (0.5-3.6)
[2022-12-30] MEDS: DEXTROSE 50% WATER 50ML SYRINGE IV PRN (08:34)
[2022-12-30] MEDS ORDERED: ASPIRIN 81MG EC TABLET PO SCH (09:00)
[2022-12-30] MEDS: FUROSEMIDE 40MG/4ML VIAL IVP SCH ×2 (09:00→23:08)
[2022-12-30] MEDS: LOSARTAN POTASSIUM 50 MG TABLET PO SCH (09:00)
[2022-12-30] MEDS ORDERED: ENOXAPARIN 40MG/0.4ML SYR SUBCUT SCH (09:00)
[2022-12-30] MEDS ORDERED: CLOPIDOGREL 75MG TABLET PO SCH (09:00)
[2022-12-30 11:28] VITALS: BP 141/97
[2022-12-30 11:36] VITALS: BP 141/97
[2022-12-30] MEDS ORDERED: IPRATROPIUM BROMIDE (0.02%) 0.5MG/2.5ML NEB HHN PRN (13:15)
[2022-12-30] MEDS ORDERED: ALBUTEROL (0.083%) 2.5MG/3ML NEB HHN PRN (13:15)
[2022-12-30] MEDS ORDERED: NALOXONE HCL 0.4MG/ML VIAL IV PRN (15:00)
[2022-12-30 15:08] LABS: *AMPHETAMINES SCREEN URINE NEGATIVE (NEGATIVE); *BARBITURATES SCREEN URINE NEGATIVE (NEGATIVE); *BENZODIAZEPINES SCREEN URINE NEGATIVE (NEGATIVE); *COCAINE SCREEN URINE NEGATIVE (NEGATIVE); CANNABINOID URINE SCREEN NEGATIVE (NEGATIVE); METHADONE URINE SCREEN NEGATIVE (NEGATIVE); OPIATES URINE SCREEN NEGATIVE (NEGATIVE); PHENCYCLIDINE URINE SCREEN NEGATIVE (NEGATIVE)
[2022-12-30 16:00] VITALS: BP 157/96
[2022-12-30] MEDS: FAMOTIDINE 20MG TABLET PO SCH ×2 (16:15→23:09)
[2022-12-30] MEDS: SPIRONOLACTONE 25MG TABLET PO SCH (19:22)
[2022-12-30 20:00] VITALS: BP 165/93
[2022-12-30] MEDS: ATORVASTATIN CALCIUM 40MG TABLET PO SCH (23:09)
[2022-12-30] MEDS: INSULIN GLARGINE 100 UNITS/ML SUBCUT SCH (23:10)
[2022-12-31] VITALS: BP 127/70
[2022-12-31 04:00] VITALS: BP 113/59
[2022-12-31] MEDS: BLOOD SUGAR DIAGNOSTIC STRIP TEST SCH ×4 (07:07→20:14)
[2022-12-31] MEDS: INSULIN LISPRO 100 UNITS/ML SUBCUT SCH ×4 (07:07→20:14)
[2022-12-31] MEDS: SPIRONOLACTONE 25MG TABLET PO SCH ×2 (07:07→18:02)
[2022-12-31 08:00] VITALS: BP 123/78
[2022-12-31] MEDS: LOSARTAN POTASSIUM 50 MG TABLET PO SCH (09:42)
[2022-12-31] MEDS: FAMOTIDINE 20MG TABLET PO SCH ×2 (09:42→21:21)
[2022-12-31] MEDS: FUROSEMIDE 40MG/4ML VIAL IVP SCH ×2 (09:43→21:21)
[2022-12-31 12:00] VITALS: BP 131/81
[2022-12-31] MEDS ORDERED: SODIUM BICARBONATE 4% (2.4MEQ) 5ML VIAL IV ONE (13:04)
[2022-12-31 16:03] VITALS: BP 140/72
[2022-12-31 17:58] LABS: CARCINO EMBRYONIC ANTIGEN 7.3 ng/ml; PROSTRATE SPECIFIC AG TOTAL 3.96 ng/mL (0.0-4.0)
[2022-12-31 20:00] VITALS: BP 121/67
[2022-12-31] MEDS: ATORVASTATIN CALCIUM 40MG TABLET PO SCH (21:21)
[2022-12-31] MEDS: INSULIN GLARGINE 100 UNITS/ML SUBCUT SCH (21:22)
[2023-01-01] VITALS (7 sets, daily range): BP systolic 110–144; BP diastolic 63–91
[2023-01-01] MEDS: SPIRONOLACTONE 25MG TABLET PO SCH ×2 (05:20→17:49)
[2023-01-01] MEDS: DEXTROSE 50% WATER 50ML SYRINGE IV PRN ×4 (05:29→17:48)
[2023-01-01] MEDS: BLOOD SUGAR DIAGNOSTIC STRIP TEST SCH ×4 (05:56→20:01)
[2023-01-01] MEDS: INSULIN LISPRO 100 UNITS/ML SUBCUT SCH ×4 (05:56→20:01)
[2023-01-01] MEDS ORDERED: GLIP5TAB12 MT (07:04)
[2023-01-01] MEDS ORDERED: SPIR25TA MT (07:04)
[2023-01-01] MEDS ORDERED: FURO-151 MT (07:04)
[2023-01-01] MEDS: LOSARTAN POTASSIUM 50 MG TABLET PO SCH (08:23)
[2023-01-01] MEDS: FAMOTIDINE 20MG TABLET PO SCH ×2 (08:23→20:14)
[2023-01-01] MEDS: FUROSEMIDE 40MG/4ML VIAL IVP SCH ×2 (08:23→20:14)
[2023-01-01] MEDS: SODIUM HYPOCHLORITE SOLUTION (0.5%)FULL STRENGTH TOP SCH (12:00)
[2023-01-01] MEDS: INSULIN GLARGINE 100 UNITS/ML SUBCUT SCH (20:01)
[2023-01-01] MEDS: ATORVASTATIN CALCIUM 40MG TABLET PO SCH (20:14)
[2023-01-02 03:51] VITALS: BP 141/77
[2023-01-02] MEDS: SPIRONOLACTONE 25MG TABLET PO SCH ×2 (05:25→18:09)
[2023-01-02] MEDS: BLOOD SUGAR DIAGNOSTIC STRIP TEST SCH ×3 (05:53→17:14)
[2023-01-02] MEDS: INSULIN LISPRO 100 UNITS/ML SUBCUT SCH ×3 (05:53→18:15)
[2023-01-02 07:04] LABS: BASOPHILS % 0.3 % (0.0-2.0); EOSINOPHILS % 4.9 % (0.0-5.0); HEMATOCRIT. 32.8 % (42.0-52.0); LYMPHOCYTES % 19.3 % (20.0-50.0); MEAN CORPUSCULAR HEMOGLOBIN 29.7 pg (28.0-32.0); MEAN CORPUSCULAR VOLUME 88.9 fL (80.0-94.0); MEAN PLATELET VOLUME 7.5 fl (7.4-10.4); MONOCYTES % 11.8 % (2.0-8.0); NEUTROPHILS % 63.7 % (40.0-76.0); PLATELET 242 x1000/uL (130-400); RED BLOOD CELL COUNT 3.69 mill/uL (4.7-6.1); RED CELL DISTRIBUTION WIDTH 14.2 % (11.6-14.6)
[2023-01-02 08:00] VITALS: BP 123/71
[2023-01-02] MEDS: FAMOTIDINE 20MG TABLET PO SCH (08:33)
[2023-01-02] MEDS: SODIUM HYPOCHLORITE SOLUTION (0.5%)FULL STRENGTH TOP SCH (08:33)
[2023-01-02] MEDS: LOSARTAN POTASSIUM 50 MG TABLET PO SCH (08:33)
[2023-01-02] MEDS: FUROSEMIDE 40MG/4ML VIAL IVP SCH (08:33)
[2023-01-02] MEDS ORDERED: SODIUM CHLORIDE 0.45% 1,000 ML IV SCH (09:00)
[2023-01-02] MEDS ORDERED: LIDOCAINE HCL/PF 1% 10 MG/ML 5ML VIAL ONE ×3 (09:15→09:42)
[2023-01-02] MEDS ORDERED: IODIXANOL 320MG/ML 100 ML BOTTLE IV ONE (09:15)
[2023-01-02] MEDS ORDERED: HEPARIN 1000 UNITS/ML 10ML ONE ×2 (09:15→09:57)
[2023-01-02] MEDS ORDERED: FENTANYL CITRATE/PF 50MCG/ML 2ML VIAL ONE (09:20)
[2023-01-02] MEDS ORDERED: MIDAZOLAM HCL 2 MG/2 ML VIAL ONE (09:21)
[2023-01-02] MEDS ORDERED: NITROGLYCERIN 50MCG/ML 10ML VIAL (CATH LAB) IV ONE (12:47)
[2023-01-02] MEDS ORDERED: NICARDIPINE 100MCG/ML 10ML VIAL (CATH LAB) IV ONE (12:47)
[2023-01-02 16:00] VITALS: BP 113/70
[2023-01-02 17:25] VITALS: BP 113/70
[2023-01-02] MEDS ORDERED: INSULIN LISPRO 100 UNITS/ML SUBCUT NR (17:30)
== END 2023-01-02 18:45 | disposition home or self-care (01) | DRG 291 ==
LOC: ER 15:21 → MICUSO 18:01 → EDBEDREQ 18:06 → EDBEDREQTM 18:06 → 7EST 12-30 10:42
PROVIDERS: ADMIT Internal Medicine; ATTEND Internal Medicine
PROC: 0W9B30Z Drainage of Left Pleural Cavity with Drainage Device, Percutaneous Approach (ICD-10-PCS; principal; 2022-12-31)
DX: I11.0 Hypertensive heart disease with heart failure (principal); I50.43 Acute on chronic combined systolic (congestive) and diastolic (congestive) heart failure; J96.00 Acute respiratory failure, unspecified whether with hypoxia or hypercapnia; E46 Unspecified protein-calorie malnutrition; J90 Pleural effusion, not elsewhere classified; L97.429 Non-pressure chronic ulcer of left heel and midfoot with unspecified severity; I42.9 Cardiomyopathy, unspecified; L97.529 Non-pressure chronic ulcer of other part of left foot with unspecified severity; E78.5 Hyperlipidemia, unspecified; E11.621 Type 2 diabetes mellitus with foot ulcer; D64.9 Anemia, unspecified; E11.51 Type 2 diabetes mellitus with diabetic peripheral angiopathy without gangrene; E11.65 Type 2 diabetes mellitus with hyperglycemia; Z68.24 Body mass index [BMI] 24.0-24.9, adult; I25.10 Atherosclerotic heart disease of native coronary artery without angina pectoris; I08.1 Rheumatic disorders of both mitral and tricuspid valves; E11.40 Type 2 diabetes mellitus with diabetic neuropathy, unspecified; Z20.822 Contact with and (suspected) exposure to COVID-19; K59.00 Constipation, unspecified; Z79.4 Long term (current) use of insulin; Z79.02 Long term (current) use of antithrombotics/antiplatelets; Z90.49 Acquired absence of other specified parts of digestive tract; Z79.82 Long term (current) use of aspirin
CPT/HCPCS: 32555; 36415; 71045; 73630; 76604; 80048; 80053; 80061; 80305; 81003; 82105; 82378; 82550; 82553; 82607; 82746; 82962; 83036; 83540; 83550; 83615; 83735; 83880; 84100; 84153; 84439; 84443; 84484; 85025; 86301; 87426; 88108; 93005; 93458; 93923; 93970; 97162; 97166; 99285; C1760; C1769; C1887; C1893; J1644; J1815; J1940; J2250; J3010; J3490; Q9967; G0103